=== PATIENT | female | born 1990 | race Caucasian/White ===

== ENCOUNTER 2021-11-06 17:30 | Emergency (ER) | payer OTHER, SELFPAY ==
--- NOTE | ~2021-11-06 | XR_ITS ---
EXAMINATION: XR abdomen/kub 1V INDICATION: Abdominal pain TECHNIQUE: Supine views of the abdomen were obtained on 2 radiographs. COMPARISON: None FINDINGS: The bowel gas pattern is normal. No free intraperitoneal gas is identified. There is a mode rate volume of colonic stool. The osseous structures are unremarkable. IMPRESSION: 1. Moderate volume of colonic stool. Reviewed, dictated and finalized at location F. L OPERATIONS MANAGER
[2021-11-06 17:37] VITALS: BP 133/82; PULSE 100; RESP 18; TEMP 36.9; O2SAT 100
--- NOTE | 2021-11-06 17:46 | ED.FEMALEGU ---
HPI - Female Genitourinary General Chief complaint: Urogenital-Female Stated complaint: uti complaint Time Seen by Provider: 11/06/21 17:46 Source: patient and family History of Present Illness HPI Narrative: PATIENT PRESENTS WITH URINARY SYMPTOMS. BURNING WITH URINATION. NO FLANK PAIN, NO ABDOMINAL PAIN, NO PELVIC PAIN AND NO GROSS HEMATURIA. NO CONCERN FOR STI. NO VAGINAL DISCHARGE. PATIENT DENIES URINATING OFTEN, BURNING WITH URINATION AND IS NOT VOIDS SMALL AMOUNTS. PATIENT STATES SHE HAS LOW BACK PAIN AND LEFT LOWER QUADRANT PAIN. PATIENT REPORTS A HISTORY OF CONSTIPATION AND REPORTS LAST BM 2 DAYS AGO OF HARD FORMED STOOL. PATIENT REPORTS HAS BEEN EVALUATED BY PCP FOR CONSTIPATION AND TAKES STOOL SOFTNERS ON A DAILY BASIS. NO NAUSEA NO CONCERN FOR JUST FINISHED NORMAL MENSES. MD elicited complaint: dysuria and UTI Related Data Home Medications Medication Instructions Recorded Confirmed bupropion HCl 300 mg PO DAILY 11/06/21 11/06/21 norethindrone-e.estradiol-iron 1.5 tablet PO DAILY 11/06/21 11/06/21 [ ()] venlafaxine 75 mg PO DAILY 11/06/21 11/06/21 Allergies Allergy/AdvReac Type Severity Reaction Status Date / Time sulfamethoxazole Allergy Severe Anaphylactic Verified 05/26/18 01:58 Shock trimethoprim Allergy Severe Anaphylactic Verified 05/26/18 01:58 Shock Sulfa (Sulfonamide Allergy Intermediate Confusion Verified 05/25/18 23:52 Antibiotics) prednisone Allergy Mild rash Verified 05/25/18 23:52 amoxicillin Allergy Unknown Rash Verified 11/06/21 17:48 cefprozil Allergy Unknown Rash Verified 11/06/21 17:48 levofloxacin Allergy Unknown Rash Verified 11/06/21 17:48 Review of Systems Review of Systems: CONSTITUTIONAL: Denies fever, chills, or sweats. EYES: Denies visual changes, redness, or discharge. ENT: Denies rhinorrhea, congestion, sore throat, or otalgia. CARDIOVASCULAR: Denies chest pain, palpitations, or edema. RESPIRATORY: Denies cough or dyspnea. GASTROINTESTINAL: Denies abdominal pain, nausea, vomiting, or diarrhea. GENITOURINARY: Denies dysuria or hematuria. SKIN: Denies rash or itching. MUSCULOSKELETAL: Denies back pain, joint pain, or myalgia. NEUROLOGIC: Denies headache, numbness, or weakness. PSYCHIATRIC: Denies anxiety or depression. Allergic/Immunologic: Comments: At time of signature, agree with nursing past medical, surgical, social and family history. There is no relevant family history pertinent to the presenting complaint PMFSH Family History Family History (Updated 05/02/11 @ 13:47 by DOCTOR UNKNOWN) Other Cerebrovascular accident Diabetes mellitus Family history of coronary artery disease Family history of malignant melanoma Hypertension Social History Social History Smoking status: Never smoker Alcohol intake: current Comments At time of signature, agree with nursing past medical, surgical, social and family history. There is no relevant family history pertinent to the presenting complaint Exam Narrative: GENERAL: Well-appearing, well-nourished, and in no acute distress. HEAD: Normocephalic, atraumatic. EYES: PERRLA and EOMI. ENT: Nares clear, no rhinorrhea or epistaxis. Mucous membranes moist. NECK: Supple. CHEST: Clear to auscultation. No respiratory distress. HEART: Regular rate and rhythm. No murmur heard. Normal peripheral pulses. ABDOMEN: Soft, nontender, nondistended, normal active bowel sounds. GENERALIZED TENDERNESS TO ABDOMINAL AREA EXTREMITIES: Normal range of motion. No edema. SKIN: Warm, dry, no rash. NEURO: No focal deficits. Alert and oriented x3. [place] Coma Scale Eye Opening: Spontaneous 4 [place] Coma Scale Motor: Obeys Commands 6 [place] Coma Scale Verbal: Oriented 5 [place] Coma Scale Total 15 Course Course Level of Care: Express Care Visit Vital Signs Vital signs: Vital Signs Temperature 36.9 C 11/06/21 17:37 Pulse Rate 100 11/06/21 17:37 Respiratory Rate 18 01
--- NOTE | 2021-11-06 18:06 | PC.NURSE ---
NO UC ORDERED PER PROVIDER
== END 2021-11-06 18:35 | disposition home or self-care (01) ==
PROVIDERS: Emergency Provider Nurse Practitioner Family; PCP Physician Assistant
DX: K59.00 Constipation, unspecified (principal); F41.9 Anxiety disorder, unspecified
CPT/HCPCS: 74018; 81003; 99213; G0463

== ENCOUNTER 2022-01-16 08:24 | Emergency (ER) | payer OTHER, SELFPAY ==
[2022-01-16 08:30] VITALS: BP 120/76; PULSE 109; RESP 18; TEMP 36.3; O2SAT 98
--- NOTE | 2022-01-16 08:39 | ED.URI ---
HPI - URI/Sore Throat General Chief Complaint: Upper Respiratory Infection Stated Complaint: Sore Throat/Congestion Time Seen by Provider: 01/16/22 08:41 Source: patient Mode of arrival: ambulatory Limitations: no limitations History of Present Illness HPI Narrative: 31 yo F presents with c/o runny nose, congestion, ears clogged, cough, sore throat, headache for 2 days. Took home covid test yesterday and was negative. Afebrile. Taking Nyquil to treat symptoms. No CP/SOB. Orginally thought symptoms were allergy related but now feels more sick . All systems reviewed and negative except as noted above. Related Data Home Medications Medication Instructions Recorded Confirmed bupropion HCl 300 mg PO DAILY 11/06/21 11/06/21 norethindrone-e.estradiol-iron 1.5 tablet PO DAILY 11/06/21 11/06/21 [ FE (28)] venlafaxine 75 mg PO DAILY 11/06/21 11/06/21 Allergies Allergy/AdvReac Type Severity Reaction Status Date / Time sulfamethoxazole Allergy Severe Anaphylactic Verified 01/16/22 08:42 Shock trimethoprim Allergy Severe Anaphylactic Verified 01/16/22 08:42 Shock Sulfa (Sulfonamide Allergy Intermediate Confusion Verified 01/16/22 08:42 Antibiotics) prednisone Allergy Mild rash Verified 01/16/22 08:42 amoxicillin Allergy Unknown Rash Verified 01/16/22 08:42 cefprozil Allergy Unknown Rash Verified 01/16/22 08:42 levofloxacin Allergy Unknown Rash Verified 01/16/22 08:42 Review of Systems Review of Systems: CONSTITUTIONAL: Denies fever, chills, or sweats. EYES: Denies visual changes, redness, or discharge. ENT: Reports rhinorrhea, congestion, sore throat, or otalgia. CARDIOVASCULAR: Denies chest pain, palpitations, or edema. RESPIRATORY: Reports cough. Denies dyspnea. GASTROINTESTINAL: Denies abdominal pain, nausea, vomiting, or diarrhea. GENITOURINARY: Denies dysuria or hematuria. SKIN: Denies rash or itching. MUSCULOSKELETAL: Denies back pain, joint pain, or myalgia. NEUROLOGIC: Denies headache, numbness, or weakness. PSYCHIATRIC: Denies anxiety or depression. All other systems reviewed are negative, except as documented in HPI. [facility] Family History Family History (Updated 05/02/11 @ 13:47 by DOCTOR UNKNOWN) Other Cerebrovascular accident Diabetes mellitus Family history of coronary artery disease Family history of malignant melanoma Hypertension Social History Social History Smoking status: Never smoker Alcohol intake: current Comments At time of signature, agree with nursing past medical, surgical, social and family history. There is no relevant family history pertinent to the presenting complaint. Exam Narrative: GENERAL: This is a well-nourished, well-developed patient, in no apparent distress. HEAD: normocephalic, atraumatic. EYES: PERRL. Sclera clear/white. Vision is grossly intact. EARS: External ears normal, auditory canals clear and without drainage, TMs normal without perforation. Hearing grossly intact. NOSE: External nose normal. Clear nasal drainage. THROAT: Mucous membranes moist, posterior pharynx clear. Clear postnasal drainage noted. NECK: Neck supple, non-tender without lymphadenopathy, masses or thyromegaly. CARDIOVASCULAR: Regular rate and rhythm without murmurs, gallops, or rubs. RESPIRATORY: Clear to auscultation. Breath sounds equal bilaterally. No wheezes, rales, or rhonchi. SKIN: warm, Dry, intact with no suspicious lesions or rash, good texture and turgor. NEURO: awake, alert, and oriented to person, place and time. There were no obvious focal neurologic abnormalities. EXTREMITIES: Normal range of motion Course Course Level of Care: Express Care Visit Vital Signs Vital signs: Vital Signs Temperature 36.3 C L 01/16/22 08:30 Pulse Rate 109 H 01/16/22 08:30 Respiratory Rate 18 01/16/22 08:30 Blood Pressure 120/76 01/16/22 08:30 Pulse Oximetry 98 01/16/22 08:30 Temperature 36.3 C L 01/16/22 08:30 Pulse Rate 109 H
== END 2022-01-16 08:55 | disposition home or self-care (01) ==
PROVIDERS: Emergency Provider Nurse Practitioner Family; PCP Physician Assistant
DX: J06.9 Acute upper respiratory infection, unspecified (principal); F41.9 Anxiety disorder, unspecified
CPT/HCPCS: 87081; 87804; 87880; 99213; G0463

== ENCOUNTER → 2022-05-28 13:50 | Outpatient (CLI) | payer OTHER, SELFPAY ==
--- NOTE | ~2022-05-28 | US_ITS ---
US axilla LT 05/28/2022 14:06 Indication: Localized swelling of the left axilla Procedure: High-resolution ultrasound of the left axilla Comparison: No prior studies for comparison. Findings: There is normal heterogeneous echotexture in the left axilla without discrete mass or fluid collection. Impression: 1: Normal left axillary ultrasound. No discrete mass. BI-RADS CATEGORY 1 - NEGATIVE Reviewed, dictated and finalized at location A. Impression: 1: Normal left axillary ultrasound. No discrete mass. BI-RADS CATEGORY 1 - NEGATIVE
== END ==
PROVIDERS: PCP Physician Assistant; Visit Provider Physician Assistant
DX: R22.2 Localized swelling, mass and lump, trunk (principal)
CPT/HCPCS: 76882

== ENCOUNTER 2025-01-04 13:31 | Outpatient (CLI) | payer OTHER, SELFPAY ==
--- NOTE | ~2025-01-04 | US_ITS ---
EXAM EXAMINATION: US OB follow up DATE: 01/04/2025 16:35 CDT INDICATION: Growth COMPARISON: 08/10/2024 TECHNIQUE: Real-time transabdominal obstetric ultrasound. FINDINGS: 1 para 0 There is a single intrauterine gestation in vertex presentation. The placenta is anterior The cervix measures 3.2 cm in length on the submitted images. cardiac activity and movement is noted with a heart rate of 128 beats per minute. The following biometric data were obtained: Biparietal diameter (BPD): 7.7 cm; head circumference (HC): 29.1 cm; abdominal circumference (AC): 28.4 cm; femur length (FL): 6.1 cm. These measurements are concordant. Estimated weight is 1884 g +/- 283 g, which correlates with the 63rd percentile when 03/03/2025 i s used as estimated date of delivery. As single measurements, these parameters are each equal to the following estimated gestational ages: BPD: 31 weeks 0 days. HC: 32 weeks 0 days. AC: 32 weeks 3 days. FL: 31 weeks 4 days. estimated gestational age based solely on measurements from this exam is 31 weeks 5 days +/- 2 weeks 2 days. IMPRESSION: Single intrauterine gestation in vertex presentation with cardiac activity identified. Estimated gestational age is 31 weeks and 5 days. Estimated date of delivery by ultrasound is 03/03/2025 Reviewed, dictated and finalized at location A. IMPRESSION: Single intrauterine gestation in vertex presentation with cardiac activit y identified. Estimated gestational age is 31 weeks and 5 days. Estimated date of delivery by ultrasound is 03/03/2025
== END 2025-01-04 13:32 | disposition home or self-care (01) ==
LOC: GOSHIMG 13:32
PROVIDERS: PCP Obstetrics & Gynecology; Visit Provider Obstetrics & Gynecology
DX: O09.511 Supervision of elderly primigravida, first trimester (principal); Z3A.00 Weeks of gestation of pregnancy not specified
CPT/HCPCS: 76816

== ENCOUNTER 2025-01-18 16:40 | Outpatient (CLI) | payer OTHER, SELFPAY ==
[2025-01-18 17:08] VITALS: BP 134/87; PULSE 100; PULSE 91; BMI 38.5
[2025-01-18 17:10] LABS: Basophils Absolute Auto 0.1 K/mm3 (0.0-0.1); Basophils Percent Auto 0.4 % (0.2-1.2); Eosinophils Absolute Auto 0.2 K/mm3 (0-0.3); Eosinophils Percent Auto 1.4 % (0-4.4); Hematocrit 30.4 % (37.0-47.0); Hemoglobin 10.4 g/dL (12.0-15.0); Immature Granulocyte Absolute 0.23 K/mm3 (0.00-0.031); Immature Granulocyte Percent A 1.4 % (0-0.5); Lymphocytes Absolute Auto 3.89 K/mm3 (0.9-3.2); Lymphocytes Percent Auto 23.5 % (18.3-44.2); Mean Corpuscular HGB Conc 34.2 g/dl (32-36); Mean Corpuscular Hemoglobin 29.7 pg (26-34); Mean Corpuscular Volume 86.9 fl (80-100); Mean Platelet Volume 10.2 fl (7.4-10.4); Monocytes Percent Auto 6.3 % (2.6-8.5); Neutrophils Absolute Auto 11.1 K/mm3 (1.3-6.7); Platelet Count Result 294 k/mm3 (150-375); Red Cell Distribution Width 13.2 % (11.5-14.5); White Blood Count 16.6 K/mm3 (4.5-10.0)
[2025-01-18 17:14] LABS: Add Urine Microscopic? YES; Appearance Urine Clear (Clear); Bacteria Urine Rare /hpf; Bilirubin Urine Negative (Negative); Blood Urine Negative (Negative); Color Urine Yellow (Yellow); Glucose Urine UA Trace mg/dL (Negative); Ketones Urine Negative (Negative); Leukocyte Esterase Ur Trace LEU/UL (Negative); Nitrate Urine Negative (Negative); Non Pathogenic Casts 0-2; Protein Urine Negative (Negative); RBC Urine 0-2 /hpf (0-2); Specific Grav Ur 1.004 (1.001-1.035); Squamous Epithelial Cell Urine Occasional /hpf (Few); Urobilinogen Urine 0.2 mg/dL (<2.0); WBC Urine 0-5 /hpf (0-3); pH Urine 6.5 (5.0-9.0)
[2025-01-18 17:15] VITALS: BP 129/82; PULSE 96
--- OUTSIDE RECORDS SUMMARY | 2025-01-18 17:17 | XMS_ITS | Clinical Summary ---
Author Organization [facility] Address [address] [place] [address] Care Team Providers Care Metabolic Specialist Name Role Phone Nelly Anedrson Primary Care Pr ovider Source Comments [facility],non-owned Affiliates and Associated Physician Practices is amultiple site organization consisting of ambulatory clinics and hospital sitesin [place], [place], [place] and [place]. This disclosure is being madepursuant to the Care Everywhere program and may not contain all information available regarding this patient. Last updated 18.[facility] [employer] Allergies Active Allergy Reactions Criticality Noted Date Comments Amoxicillin Rash Medium 05/20/2018 Cefprozil Urticaria Medium 05/20/2018 Ciprofloxacin Itching 05/20/2018 Levofloxacin Urticaria Medium 05/20/2018 Medications * Be aware that medications may not be up to date on this document. Alwaysverify current medications with the patient. Medication Sig Dispensed Refills Start Date End Date Status norethindone-ethiny l estradiol-FE (BLISOVI 24 FE) 1-20 MG-MCG(24) tablet Take 1 (one) tablet by mouth once daily Active venlafaxine (EFFEXOR) 37.5 MG tablet Take 1 (one) Half Tablet by mouth 3 times daily with meals Active BUPROPION HCL PO Active predniSONE (DELTASONE) 10 MG tablet 5 tabs po x2 days, 4 tabs po x2 days, 3 tabs po x2 days, 2 tabs po x2 days, 1 tab po x2 days 30 tablet 05/20/2018 Active Additional Information Patient not taking.Reason: Other, Informant: Patient, Reported on 09/07/2024 escitalopram (Lexapro) 5 MG tablet Take 1 (one) tablet by mouth once daily Active aspirin (Aspirin) 81 MG chew tablet Take 1 (one) tablet by mouth once daily Active Vit-Fe Fumarate-FA ( vitamin) 28-0.8 MG tablet Take 1 (one) tablet by mouth once daily Active docusate sodium (Colace) 50 MG capsule Take 1 (one) capsule by mouth once daily Active pyridoxine (Vitamin B-6) 25 MG tablet Take 2 (two) tablets by mouth once daily Active Doxylamine Succinate, Sleep, (UNISOM PO) Take 1 tablet by mouth at bedtime Active calcium carbonate (Tums) 500 MG chew tablet Take 1 (one) tablet by mouth daily with food Active levothyroxine (Synthroid) 25 MCG tabletIndications:H ypothyroidism Take 1 (one) tablet by mouth daily before breakfast Patient is unsure of dose she takes Reasons: Underactive Thyroid Active Active Problems Problem Noted Date Diagnosed Date Multigravida of advanced maternal age in third t rimester 09/07/2024 Anxiety 09/07/2024 Hypothyroid in , antepartum 09/07/2024 NEGATIVE PAST MEDICAL HISTORY - SEE PROBLEM LIST Estimated Date of Delivery Comme nts Yes 03/06/2025 Based on last me nstrual period of 05/30/2024 Encounters Date Type Department Care Team Description 11/14/2024 12:43 PM SOCIAL MEDIA PROJECT MANAGER - 11/14/2024 11:59 PM SOCIAL MEDIA PROJECT MANAGER Hospital Encounter [facility] [address] [place], [place] [id number] Head, Katiuska Ventura MD Discharge Disposition: Home or Self Care from Last 3 Months Family History Medical History Relation Name Comments Hyperlipidemia Father Hypertension Father Relation Name Status Comments Father Social History Tobacco Use Types Packs/Day Years Used Date Smoking Tobacco: Never Smokeless Tobacco: Never Alcohol Use Standard Drinks/Week Comments Not Currently 0 (1 standard drink = 0.6 oz pur e alcohol) Estimated Date of Delivery Comme nts Yes 03/06/2025 Based on last me nstrual period of 05/30/2024 Sex and Gender Information Value Date Recorded Sex Assigned at Not on file Gender Identity Not on file Sexual Orientation Not on file Last Filed Vital Signs Vital Sign Reading Time Taken Comments Blood Pressure 122/60 09/07/2024 10:57 AM SOCIAL MEDIA PROJECT MANAGER Pulse 68 09/07/2024 10:57 AM SOCIAL MEDIA PROJECT MANAGER Temperature 37.2 C (99 F) 07/16/2020 5:05 PM CDT Respiratory Rate 20 07/16/2020 5:05 PM CDT Oxygen Saturation 96% 07/16/2020 5:05 PM CDT Inhaled Oxygen Concentration - - Weight 82.2 kg (181 lb 3.2 oz) 09/07/2024 10:57 AM SOCIAL MEDIA PROJECT MANAGER Height 160 cm (5' 3 ) 05/20/2018 3:00 PM CDT Body Mass Index 32.1 05/20/2018 3:00 PM CDT Plan of Treatment Health Maintenance Due Date Last Done Comments PAP SMEAR 1988 HIV SCREENING 2003 HEPATITIS C SCREENING 12/13/2006 DTAP/TDAP/TD VACCINES (1 - Tdap) 2007 HEPATITIS B VACCINE (1 of 3 - 19+ 3-dose series) 2007 COVID-19 VACCINE (3 - 2023-2 5 season) 2024 12/28/2020, 11/29/2020 INFLUENZA VACCINE (#1) 2024 09/02/2021 DEPRESSION SCREENING 10/26/2024 OB-ONE HOUR GLUCOSE 11/28/2024 OB-TDAP CURRENT 12/05/2024 OB-RHOGAM INJECTION 12/12/2024 OB-GROUP B STREP SCREEN 01/30/2025 ZOSTER VACCINE (1 of 2) 2038 HIB VACCINE Aged Out No longer eligi ble based on patient's age to complete this topic HPV VACCINE Aged Out No longer eligi ble based on patient's age to complete this topic MENINGOCOCCAL (Group B) VACCINE SHARED DECISION-MAKING Aged Out No longer eligible based on patient's age to complete this topic MENINGOCOCCAL GROUPS A/C/Y/W VACCINE Aged Out No longer eligible b ased on patient's age to complete this topic PNEUMOCOCCAL VACCINE Aged Out No long er eligible based on patient's age to complete this topic Respiratory Syncytial Virus (RSV) Vaccine Pt: or over 60 yrs (No Doses Required) Completed Procedures Procedure Name Priority Date/Time Associated Diagnosis Comments SONOGRAM - COMPLETE Routine 11/14/2024 1 2:52 PM SOCIAL MEDIA PROJECT MANAGER Multigravida of advanced maternal age in third trimester Obesity affecting in second trimester, unspecified obesity type Hypothyroid in , antepartum 24 weeks gestation of Encounter for ultrasound to assess growth Encounter for follow-up ultrasound of anatomy from Last 3 Months Results * SONOGRAM - COMPLETE (11/14/2024 12:52 PM SOCIAL MEDIA PROJECT MANAGER) Linked Results Indication ======== Incomplete anatomy Advanced Maternal Age Obesity, Class I Anxiety/Depressio n History ====== OB History 1 Lab Tests Test Date Result NIPT Low risk, Male (per patient) Maternal Assessment Physical Exam Height 157 cm, 5 ft 2 in. Weight 90 kg, 199 lb. Initial weight 80 kg, 177 lb. BMI 36.40 kg/m . Initial BMI 32.37 kg/m . Weight gain 10 kg, 22 lb Method ====== Transabdominal ultrasound. View: Sufficient ========= Goldstein . Number of fetuses: 1 Dating ====== Date Details Gest. age BETHANY LMP 05/30/2024 24 w + 0 d 03/06/2025 Stated BETHANY 24 w + 0 d 03/06/2025 U/S 11/14/2024 based upon AC, BPD, Femur, HC 24 w + 3 d 03/03/2025 Assigned dating based on the LMP, selected on 09/07/2024 24 w + 0 d 03/06/2025 General Evaluation Cardiac activity present. FHR 152 bpm. Presentation: cephalic Placenta: Placental site: anterior Umbilical cord: Cord vessels: 3 vessel cord. Insertion site: normal insertion Amniotic fluid: Amount of AF: normal, normal. MVP 5.0 cm Biometry BPD 58.7 mm 24w 0d 44% Hadlock HC 227.7 mm 24w 6d 63% Hadlock AC 205.1 mm 25w 1d 75% Hadlock Femur 41.8 mm 23w 4d 25% Hadlock Humerus 41.6 mm 25w 1d 74% Alexandra HC / AC 1.11 Weight Calculation: EFW 699 g 63% Hadlock EFW (lb,oz) 1 lb 9 oz EFW by Hadlock ([id number]) appropriate Growth Overview Exam date GA BPD (mm) HC (mm) AC (mm) FL (mm) HL (mm) EFW (g) 09/07/2024 14w 2d 27.8 73% 103.5 61% 82.8 68% 12.7 23% 94 33% 10/17/2024 20w 0d 46.7 55% 174.8 42% 159.4 78% 32 41% 32 79% 357 72% 11/14/2024 24w 0d 58.7 44% 227.7 63% 205.1 75% 41.8 25% 41.6 74% 699 63% Anatomy The following structures appear normal: Heart / Thorax 4-chamber view. [id number] view. Aortic arch view. Bicaval view. Ductal arch view. Great vessels. Spine Cervical spine. Thoracic spine. Lumbar spine. Sacral spine. Extremities / Skeleton Left foot. The following structures were documented previously: Head / Neck Cranium. Lateral ventricles. Choroid plexus. Midline falx. Cavum septi pellucidi. Cerebellum. Cisterna magna. Thalami. Nuchal fold. Face Lips. Profile. Nose. Nasal bone. Orbits. Heart / Thorax RVOT view. LVOT view. 3-vessel view. Situs. Right lung. Left lung. Diaphragm. Abdomen Cord insertion. Stomach. Kidneys. Bladder. Bowel. Genitals. Extremities / Skeleton Arms. Hands. Legs. Right foot. sex: male. Impression ========= Single, live, intrauterine at 24w 0d size appears appropriate Amniotic fluid volume: normal No major malformations were seen within the limitations of ultrasound Follow-up ======== Follow up ultrasound in 4-6 weeks for growth assessment is recommended Coding ====== Procedures [id number]: US Preg Uterus Follow Up [facility] PACS Anatomical Region Laterality Modality Other 11/14/2024 12:5 2 PM SOCIAL MEDIA PROJECT MANAGER Jacquelin Juárez MD [facility] ORDERABLES from Last 3 Months Care Teams Metabolic Specialist Relationship Specialty Start Date End Date Nelly Anderson PA [address] [place] [id number] PCP - General Physician Wheel Installer 05/20/18
--- OUTSIDE RECORDS SUMMARY | 2025-01-18 17:17 | XMS_ITS | Continuity of Care Document ---
Author Organization [facility] Address [address] [place] [address] Phone Care Team Providers Care Library Technical Assistant Name Role Phone Ayesha Fields DO Unavailable Unavailable Allergies, Adverse Reactions, Alerts Substance Reaction Status Criticality cefprozil Active No Information CIPROFLOXACIN HCL Active No Informa tion ciprofloxacin Active No Information levofloxacin Active No Information amoxicillin Active No Information Medications Medication Instructions Dosage Effective Dates (start - stop) Status Comments bupropion HCl XL 150 mg 24 hr tablet, extended release TAKE ONE TABLET BY MOUTH ONCE DAILY - Active venlafaxine ER 37.5 mg capsule,extended release 24 hr take 1 capsule by oral route every day with food 37.5 MG - Active omeprazole 40 mg capsule,delayed release take 1 capsule by oral route every day before a meal 40 MG - Active Xanax 0.25 mg tablet take 1 tablet by oral route every day as need for anxiety - Active Blisovi Fe 1.5/30 (28) 1.5 mg-30 mcg (21)/75 mg (7) tablet take 1 tablet by oral route every day for control 1.00 tablet - Active multivitamin tablet take 1 by Oral route once 1 - Active Advance Directives Directive Yes / No Effective Date File Name No Information Encounters Encounter Description Practice Location Reason(s) For Visit Diagnoses Date Provider Providers Copied on Encounter [facility], [address], [place], [place], [id number], tel:[phone] [facility] No Information Diamond Hodge. [address] [place] [address], [address], [place], [place], [facility], . tel:[phone] [email or web address], [address], [place], [place], [address], tel:[phone] [facility] Internal Medicine No Information Diamond Hodge. [address] [facility] [address] [facility], [address] [facility], [place], [place], [facility], . tel:[phone] [facility] [email or web address], [address], [place], [place], [address], tel:[phone] [facility] Internal Medicine No Information Yokasta Lama. [address] [place] [address], [facility], . tel:[phone] [facility], [address], [place], [place], [address], tel:[phone] [facility] Internal Medicine No Information Diamond Hodge. [address] [facility], [place] [address], [place], [place], [facility], . tel:[phone] [facility] [email or web address], [address], [place], [place], [address], [place] tel:[phone] [facility] Internal Medicine Anxiety Diamond Hodge. [address] [facility], [address], [facility], . tel:[phone] Referring Provider: Ayesha Alicia, [address] [facility] [address] [facility], [place], [place], [facility]. tel:[phone] [facility] [email or web address], [address], [place], [place], [address], [place] tel:[phone] [facility] Internal Medicine No Information Diamond Hodge. [address] [facility], [address], [facility], . tel:[phone] [facility], [address], [place], [place], [address], tel:[phone] [facility] Internal Medicine No Information Yokasta Lama. [address] [place], [address], [place]. tel:[phone] [facility], [address], [place], [place], [address], [place] tel:[phone] [facility] Internal Medicine Body mass index (BMI) 29.0-29.9, adultPE (physical exam), annual Diamond Hodge. [address] [facility], [address], [place], [address], [place]. tel:[phone] Referring Provider: Ayesha Alicia, [address], [place], [address]. tel:[phone] Family History Family Member Type Diagnosis Age At Onset Father Problem (finding) stroke Mother Problem (finding) Family history unknown Payers Payer name Insurance type Covered constitution party ID Authorstephanie haile(s) [facility] [id number] Social History Type Description Quantity Date Captured Comments Alcohol Use Details Unknown Caffeine Use Details Unknown Tobacco Use Status No Information Smoking Status No Information Sex Female Chief Complaint And Reason For Visit No Information Reason For Referral Reason For Referral No Information History Of Present Illness Encounter Date Complaint History Of Prese nt Illness No Information Functional Status Date Functional Assessmen t No Information Instructions Date Instruction Additional Infor mation No Information Assessments Type Assessment Date No Information Patient Care Teams Name Effective Dates (start - stop) Status Members No Information
[2025-01-18 17:19] LABS: Creatinine Urine 16.9 mg/dL; Total Protein Urine Random 20 mg/dL; Ur Ttl Prot Creatinine Ratio 1.18 mg/mg (0-0.20)
[2025-01-18 17:20] VITALS: BP 129/82; PULSE 96
[2025-01-18 17:22] LABS: Alanine Aminotransferase 19 U/L (6-35); Albumin Level 3.8 g/dL (3.5-5.1); Alkaline Phosphatase 153 U/L (38-126); Anion Gap 8 mmol/L (4-12); Aspartate Amino Transferase 26 U/L (14-36); Bilirubin,Total 0.2 mg/dL (0.2-1.3); Blood Urea Nitrogen 4 mg/dL (7-17); Carbon Dioxide 24 mmol/L (22-30); Chloride 102 mmol/L (98-107); Estimated CRCL calculation 104 ml/min; Estimated Glomerular Filt Rate > 60; Glucose 118 mg/dL (65-110); Potassium 3.5 mmol/L (3.4-5.0); Sodium 134 mmol/L (137-145); Uric Acid 3.2 mg/dL (2.5-7.5)
[2025-01-18 17:30] VITALS: BP 127/87; PULSE 90
[2025-01-18 17:45] VITALS: BP 128/82; PULSE 91
--- NOTE | 2025-01-18 17:54 | PC.NURSE ---
Dr. Juárez returned call and informed of reactive NST, BP's, and lab results. Pt to complete a 24 hr urine at home and when she returns it on either Thursday or Thursday, to have a NST with BP checks.
[2025-01-18 18:00] VITALS: BP 118/83; PULSE 90
--- NOTE | 2025-01-18 18:12 | PC.NURSE ---
Pt plans to start 24 hr urine on after work, complete on Thursday evening, and return specimen to OB unit Thursday morning and have NST and BP check.
== END 2025-01-18 18:12 | disposition home or self-care (01) ==
LOC: ANHOBOP 16:42 → ANHOBPP 16:43
PROVIDERS: PCP Physician Assistant; Visit Provider Obstetrics & Gynecology
DX: O13.9 Gestational [pregnancy-induced] hypertension without significant proteinuria, unspecified trimester (principal); Z3A.00 Weeks of gestation of pregnancy not specified
CPT/HCPCS: 36415; 59025; 80053; 81001; 82570; 84156; 84550; 85025; 99199

== ENCOUNTER 2025-02-11 08:33 | Outpatient (RCR) | payer OTHER, SELFPAY ==
[2025-01-21 10:55] VITALS: BMI 38.5
[2025-01-21 11:18] LABS: Collection Time Urine 24 HOURS
[2025-01-21 11:30] LABS: Total Protein Urine Random 24 mg/dL
[2025-01-21 11:31] LABS: Creatinine Urine 38.1 mg/dL; Patient Weight 210 Lbs; Serum Creat 0.69
[2025-01-21 11:32] LABS: Total Protein Urine 24 Hr 888 mg/24hr (28-141); Total Volume 24 Hour Urine 3700 ml
[2025-01-21 11:33] LABS: Creatinine Clearance Urine 126.2 ml/min (75-125); Total Volume 24 Hour Urine 3700 ml
[2025-01-21 11:40] VITALS: BP 134/79; PULSE 95
[2025-01-26 08:50] VITALS: BP 125/72; PULSE 105
[2025-01-28 08:54] LABS: Basophils Absolute Auto 0.1 K/mm3 (0.0-0.1); Basophils Percent Auto 0.5 % (0.2-1.2); Eosinophils Absolute Auto 0.2 K/mm3 (0-0.3); Eosinophils Percent Auto 1.5 % (0-4.4); Hematocrit 32.1 % (37.0-47.0); Hemoglobin 10.4 g/dL (12.0-15.0); Immature Granulocyte Absolute 0.46 K/mm3 (0.00-0.031); Immature Granulocyte Percent A 3.1 % (0-0.5); Lymphocytes Absolute Auto 2.81 K/mm3 (0.9-3.2); Lymphocytes Percent Auto 18.9 % (18.3-44.2); Mean Corpuscular HGB Conc 32.4 g/dl (32-36); Mean Corpuscular Volume 89.4 fl (80-100); Mean Platelet Volume 10.6 fl (7.4-10.4); Monocytes Absolute Auto 0.8 K/mm3 (0.1-0.6); Monocytes Percent Auto 5.3 % (2.6-8.5); Neutrophils Absolute Auto 10.5 K/mm3 (1.3-6.7); Neutrophils Percent Auto 70.7 % (45.5-73.1); Platelet Count Result 256 k/mm3 (150-375); Red Blood Count 3.59 M/mm3 (4.2-5.4); Red Cell Distribution Width 13.7 % (11.5-14.5); White Blood Count 14.9 K/mm3 (4.5-10.0)
[2025-01-28 08:56] LABS: Alanine Aminotransferase 19 U/L (6-35); Albumin Level 3.4 g/dL (3.5-5.1); Alkaline Phosphatase 157 U/L (38-126); Anion Gap 9 mmol/L (4-12); Aspartate Amino Transferase 28 U/L (14-36); Bilirubin,Total 0.2 mg/dL (0.2-1.3); Blood Urea Nitrogen 5 mg/dL (7-17); Calcium 8.9 mg/dL (8.4-10.2); Carbon Dioxide 23 mmol/L (22-30); Chloride 104 mmol/L (98-107); Estimated CRCL calculation 106 ml/min; Estimated Glomerular Filt Rate > 60; Glucose 119 mg/dL (65-110); Potassium 3.5 mmol/L (3.4-5.0); Sodium 136 mmol/L (137-145); Uric Acid 3.9 mg/dL (2.5-7.5)
[2025-01-28 09:33] VITALS: BP 119/73; PULSE 89
[2025-01-30 15:48] VITALS: BP 129/86; PULSE 90
[2025-02-04 08:55] LABS: Basophils Absolute Auto 0.1 K/mm3 (0.0-0.1); Basophils Percent Auto 0.4 % (0.2-1.2); Eosinophils Absolute Auto 0.2 K/mm3 (0-0.3); Eosinophils Percent Auto 1.3 % (0-4.4); Hematocrit 32.2 % (37.0-47.0); Hemoglobin 10.8 g/dL (12.0-15.0); Immature Granulocyte Absolute 0.14 K/mm3 (0.00-0.031); Immature Granulocyte Percent A 0.9 % (0-0.5); Lymphocytes Absolute Auto 3.34 K/mm3 (0.9-3.2); Lymphocytes Percent Auto 22.1 % (18.3-44.2); Mean Corpuscular HGB Conc 33.5 g/dl (32-36); Mean Corpuscular Hemoglobin 29.3 pg (26-34); Mean Corpuscular Volume 87.3 fl (80-100); Mean Platelet Volume 10.8 fl (7.4-10.4); Monocytes Absolute Auto 0.7 K/mm3 (0.1-0.6); Monocytes Percent Auto 4.8 % (2.6-8.5); Neutrophils Absolute Auto 10.6 K/mm3 (1.3-6.7); Neutrophils Percent Auto 70.5 % (45.5-73.1); Platelet Count Result 273 k/mm3 (150-375); Red Blood Count 3.69 M/mm3 (4.2-5.4); Red Cell Distribution Width 13.8 % (11.5-14.5); White Blood Count 15.1 K/mm3 (4.5-10.0)
[2025-02-04 09:04] VITALS: BP 123/76; PULSE 95
[2025-02-04 09:08] LABS: Alanine Aminotransferase 20 U/L (6-35); Albumin Level 3.5 g/dL (3.5-5.1); Alkaline Phosphatase 174 U/L (38-126); Anion Gap 7 mmol/L (4-12); Aspartate Amino Transferase 26 U/L (14-36); Bilirubin,Total 0.3 mg/dL (0.2-1.3); Blood Urea Nitrogen 3 mg/dL (7-17); Calcium 9.4 mg/dL (8.4-10.2); Carbon Dioxide 24 mmol/L (22-30); Chloride 103 mmol/L (98-107); Estimated CRCL calculation 97 ml/min; Estimated Glomerular Filt Rate > 60; Glucose 148 mg/dL (65-110); Potassium 3.3 mmol/L (3.4-5.0); Sodium 134 mmol/L (137-145); Uric Acid 3.9 mg/dL (2.5-7.5)
[2025-02-09 09:11] VITALS: BP 126/83; PULSE 93
--- NOTE | ~2025-02-11 | US_ITS ---
EXAMINATION: US OB BPP wo non-stress DATE: 01/26/2025 9:17 CDT INDICATION: Preeclampsia TECHNIQUE: Real-time transabdominal obstetric ultrasound. FINDINGS: Comparison to 01/26/2025 There is a single living fetus in vertex presentation. The placenta is anterior without placenta pre via. cardiac activity and movement is noted with a heart rate of 144 beats per minute. Biophysical profile: breathin of 2 movement: 2 of 2 tone: 2 of 2 Amniotic flud pocket: 2 of 2 Total score: 8 of 8 IMPRESSION: 1. Single living intrauterine in vertex presentation. 2: Total biophysical profile score of 8/8. Reviewed, dictated and finalized at location A.
--- NOTE | ~2025-02-11 | US_ITS ---
EXAMINATION: US OB BPP wo non-stress DATE: 01/30/2025 16:23 CDT INDICATION: Preeclampsia. Evaluate amniotic fluid index TECHNIQUE: Real-time transabdominal obstetric ultrasound. FINDINGS: There is a single intrauterine gestation visualized in vertex presentation. The placenta is anterior. cardiac activity and movement is noted with a heart rate of 134 beats per minute. Biophysical profile: breathin of 2 movement: 2 of 2 tone: 2 of 2 Amniotic fluid pocket: 2 of 2 Total score: 8 of 8 Femur length is 7.3 cm corresponding to an approximate gestational age of 37 weeks and 3 days. IMPRESSION: 1. Single intrauterine gestation in vertex presentation. 2: Total biophysical profile score of 8/8. Reviewed, dictated and finalized at location A.
--- NOTE | ~2025-02-11 | US_ITS ---
EXAMINATION: US OB BPP wo non-stress DATE: 02/09/2025 09:55 INDICATION: Assess biophysical profile and amniotic fluid index during third trimester . TECHNIQUE: Real-time pelvic ultrasound was performed. The interpreting radiologist was not present fo r the study. COMPARISON: None. FINDINGS: There is a single living fetus in vertex presentation. The placenta is anterior. heart rate is 136 beats per minute (bpm). Normal amniotic fluid index of 14.5 cm (5th%-95%: 7.7-24.9 cm at 36 week s estimated gestational age) Biophysical profile performed by the technologist: breathing (30 sec sustained breathing in 30 minutes): 2 out of 2 movement (3 gross body movements in 30 minutes): 2 out of 2 tone (one episode of odqxljy-qfxcokfeq-urcmtjw limb movement): 2 out of 2 Amniotic fluid pocket (2 cm): 2 out of 2 Total score: 8 out of 8 IMPRESSION: 1. Single living fetus in vertex presentation with heart rate of 136 bpm. 2. Biophysical profile 8 out of 8. 3. Normal amniotic fluid index of 14.5 cm Reviewed, dictated and finalized at location A.
--- NOTE | ~2025-02-11 | US_ITS ---
US OB limited 01/26/2025 08:32 Indication: Amniotic fluid index. Preeclampsia. Procedure: High-resolution Limited obstetrical ultrasound Comparison: Ultrasound dated 01/05/2020 Findings: There is a single living intrauterine in vertex presentation. heart rate 13 7 BPM. Placenta is anterior without previa. Amniotic fluid index is normal measuring 11.6 cm. Impression: 1: Normal CADEN measures 11.6 cm. Reviewed, dictated and finalized at location A. Impression: 1: Normal CADEN measures 11.6 cm.
[2025-02-11 09:01] LABS: Basophils Absolute Auto 0.1 K/mm3 (0.0-0.1); Basophils Percent Auto 0.6 % (0.2-1.2); Eosinophils Absolute Auto 0.2 K/mm3 (0-0.3); Eosinophils Percent Auto 1.3 % (0-4.4); Hematocrit 32.3 % (37.0-47.0); Hemoglobin 10.8 g/dL (12.0-15.0); Immature Granulocyte Absolute 0.15 K/mm3 (0.00-0.031); Lymphocytes Absolute Auto 3.16 K/mm3 (0.9-3.2); Mean Corpuscular HGB Conc 33.4 g/dl (32-36); Mean Corpuscular Hemoglobin 29.3 pg (26-34); Mean Corpuscular Volume 87.8 fl (80-100); Mean Platelet Volume 10.8 fl (7.4-10.4); Monocytes Absolute Auto 0.8 K/mm3 (0.1-0.6); Monocytes Percent Auto 5.4 % (2.6-8.5); Neutrophils Percent Auto 69.7 % (45.5-73.1); Platelet Count Result 249 k/mm3 (150-375); Red Blood Count 3.68 M/mm3 (4.2-5.4); Red Cell Distribution Width 13.8 % (11.5-14.5); White Blood Count 14.3 K/mm3 (4.5-10.0)
[2025-02-11 09:11] LABS: Alanine Aminotransferase 16 U/L (6-35); Albumin Level 3.5 g/dL (3.5-5.1); Alkaline Phosphatase 181 U/L (38-126); Anion Gap 10 mmol/L (4-12); Aspartate Amino Transferase 24 U/L (14-36); Bilirubin,Total 0.3 mg/dL (0.2-1.3); Blood Urea Nitrogen 4 mg/dL (7-17); Calcium 8.7 mg/dL (8.4-10.2); Carbon Dioxide 19 mmol/L (22-30); Chloride 106 mmol/L (98-107); Estimated CRCL calculation 99 ml/min; Estimated Glomerular Filt Rate > 60; Glucose 117 mg/dL (65-110); Potassium 3.4 mmol/L (3.4-5.0); Sodium 135 mmol/L (137-145); Uric Acid 3.9 mg/dL (2.5-7.5)
[2025-02-11 09:12] VITALS: BP 127/86; PULSE 88
== END 2025-02-15 17:23 | disposition home or self-care (01) ==
LOC: ANHOBOP 08:33
PROVIDERS: PCP Physician Assistant; Visit Provider Obstetrics & Gynecology
DX: O13.9 Gestational [pregnancy-induced] hypertension without significant proteinuria, unspecified trimester (principal)
CPT/HCPCS: 36415; 59025; 76815; 76819; 80053; 81050; 82575; 84156; 84550; 85025

== ENCOUNTER 2025-02-13 15:55 | Inpatient (IN) | payer OTHER, SELFPAY ==
[2025-02-13] VITALS (16 sets, daily range): BP systolic 131–142; BP diastolic 82–93; PULSE 74–87; TEMP 36.2–36.6; BMI 36.7
--- NOTE | 2025-02-13 17:23 | LDADM ---
This patient, Argelia Keys, was admitted to Labor/Delivery/Recovery 103 on 02/13/25 at 15:55. Plans for labor, pain management and were discussed with patient. Patient/family oriented to hospital policies and general routines including ID bracelet, bed and alarms, visiting hours, pain management, procedures, bathroom and other care routines, personal items, smoking policy, room service/diet and guest tray routines, security routines, and visiting hours. Patient/Family are encouraged to report perceived risks to care and to ask questions if they do not understand what they are told or what they should do. See OBIX for further documentation.
--- OUTSIDE RECORDS SUMMARY | 2025-02-13 17:44 | XMS_ITS | Clinical Summary ---
Author Organization [facility] Address [address] [place] [address] Care Team Providers Care Pearl Restorer Name Role Phone Nelly Anderson Primary Care Pr ovider Source Comments [facility],non-owned Affiliates and Associated Physician Practices is amultiple site organization consisting of ambulatory clinics and hospital sitesin [place], [place] and [place]. This disclosure is being madepursuant to the Care Everywhere program and may not contain all information available regarding this patient. Last updated 18.[facility] Allergies Active Allergy Reactions Criticality Noted Date Comments Amoxicillin Rash Medium 05/20/2018 Cefprozil Urticaria Medium 05/20/2018 Ciprofloxacin Itching 05/20/2018 Levofloxacin Urticaria Medium 05/20/2018 Medications * Be aware that medications may not be up to date on this document. Alwaysverify current medications with the patient. norethindone-et hinyl estradiol-FE (BLISOVI 24 FE) 1-20 MG-MCG(24) tablet [...] 1 tab po x2 days 30 tablet 8 Active Additional Information Patient not taking.Reason: Other, [...] with food Active levothyroxine (Synthroid) 25 MCG tabletIndicatio ns:Hypothyroidi sm Take 1 (one) tablet by mouth daily [...] on last me nstrual period of 05/30/2024 Family History Medical History Relation Name Comments [...] Recorded Sex Assigned at Not on file Legal Sex Female 10:52 AM CDT Gender Identity Not on file Sexual Orientation Not on file Last Filed Vital Signs Vital Sign Reading Time Taken Comments Blood Pressure 122/60 09/07/2024 10:57 AM SENIOR IT ENGINEER Pulse 68 09/07/2024 10:57 AM SENIOR IT ENGINEER Temperature 37.2 C (99 F) 07/16/2020 5:05 PM CDT Respiratory Rate 20 07/16/2020 5:05 PM CDT Oxygen Saturation 96% 07/16/2020 5:05 PM CDT Inhaled Oxygen Concentration - - Weight 82.2 kg (181 lb 3.2 oz) 09/07/2024 10:57 AM SENIOR IT ENGINEER Height 160 cm (5' 3 ) 05/20/2018 3:00 PM CDT Body Mass Index 32.1 05/20/2018 3:00 PM CDT Plan of Treatment Health Maintenance Due Date Last Done Comments PAP SMEAR 1988 HIV SCREENING 2003 HEPATITIS C SCREENING 12/13/2006 DTAP/TDAP/TD VACCINES (1 - Tdap) 2007 HEPATITIS B VACCINE (1 of 3 - 19+ 3-dose series) 2007 COVID-19 VACCINE ( - 2023-2 5 season) 2024 12/28/2020, 11/29/2020 DEPRESSION SCREENING 10/26/2024 OB-ONE HOUR GLUCOSE 11/28/2024 OB-TDAP CURRENT 12/05/2024 OB-RHOGAM INJECTION 12/12/2024 OB-GROUP B STREP SCREEN 01/30/2025 INFLUENZA VACCINE (Season Ended) 2025 09/02/2021 ZOSTER VACCINE (1 of 2) 2038 HIB [...] over 60 yrs (No Doses Required) Completed [place] [address] [place] [address] Care Teams Pearl Restorer Relationship Specialty Start Date End Date Nelly Anderson PA [address] [place] [address] PCP - General Physician Galley Hand 05/20/18
--- OUTSIDE RECORDS SUMMARY | 2025-02-13 17:44 | XMS_ITS ---
Author Organization [facility] [facility] ([address]) Address [address] [place] [address] Care Team Providers Care Tube Splicer Name Role Phone Nelly Ferguson Primary Care Provider Unavailab le Jackeline Disla Unavailable [phone] [employer], Provider Unavailable Unavailab le Allergies Allergen (clinical drug ingredient) Drug/Non Drug Allergy documented on EMR Reaction Allergy Type Onset Date Status CEFZIL (uncoded) rash Allergy Act parminder sulfamethoxazole / trimethoprim Bactrim DS wheezing Drug Allergy Active Ciprofloxacin rash Drug Allergy Act parminder Levaquin rash Drug Allergy Active methylprednisolone methylPREDNISolone rash Drug Allergy Active Penicillin hives Drug Allergy Active [facility] Conversion Encounter Medications Medication SIG (Take, Route, Frequency, Duration) Notes Start Date End Date Status Xyzal Allergy 24HR 5 MG 1 tablet PO daily for 30 Active Azelastine HCl 137 MCG/SPRAY 2 spray(s) intranasally 2 times a day for 30 day(s) Active buPROPion HCl ER (XL) 300 MG 1 tab(s) orally every 24 hours Active EPINEPHrine 0.3 MG INTRAMUSCULARLY ONCE *Please review and pick correct strength-formulati on from [facility] options. If intended option is not shown, discontinue and re-order from Quick Search* Active NASAL WASHES N/A DIRECTED INTRANASALLY NEEDED for 30 *Please review for potential replacement for e-prescription and drug interaction check* Active Effexor XR 37.5 MG 1 cap(s) orally once a day Active ZyrTEC Allergy 10 MG 1 tab(s) orally once a day Active Encounters Encounter Location Date Provider Diagnosis [facility] - [place] [address] 04/09/2024 Provider Ileana Other allergic rhinitis J30.89 Assessments Encounter Date Diagnosis (ICD Code) Assessment Notes Treatment Notes Treatment Clinical Notes Section Notes 04/09/2024 Other allergic rhinitis (ICD-10 - J30.89) Plan Of Treatment Medication Medication Name Sig Start Date Stop Date Notes Xyzal Allergy 24HR 5 MG 1 tablet PO daily for 30 Azelastine HCl 137 MCG/SPRAY 2 spray(s) intranasally 2 times a day for 30 day(s) NASAL WASHES N/A DIRECTED INTRANASALLY NEEDED for 30 *Please review for potential replacement for e-prescription and drug interaction check* Progress Notes * Kaci THACKEROB:1990 (34 yo F)Acc No.[id number]:04/09/2024 Patient: Brandi FOWLERgail Provider: Johny Pederson :1990 A ge:33 Y S ex:Female Date:04/09/2024 Address:[address] [place], [place] [id number] Pcp:Nelly Ferguson Subjective: * Chief Complaints: * 1 . Multum To Medispan Conversion Encounter. * Medical History: * Medications: T aking EPINEPHrine 0.3 MG KIT INTRAMUSCULARLY ONCE , Notes to Pharmacist: *Please review and pick correct strength-formulation from [employer] options. If intended option is not shown, discontinue and re-order from Quick Search*, Taking ZyrTEC Allergy 10 MG Tablet 1 tab(s) orally once a day , Taking Effexor XR 37.5 MG Capsule Extended Release 24 Hour 1 cap(s) orally once a day , Taking buPROPion HCl ER (XL) 300 MG Tablet Extended Release 24 Hour 1 tab(s) orally every 24 hours * Allergies: C EFZIL: rash - Allergy, Levaquin: rash - Allergy, Penicillin: hives, methylPREDNISolone: rash - Allergy, Bactrim DS: wheezing - Allergy, Ciprofloxacin: rash - Allergy. Objective: * Vitals: Assessment: * Assessment: 1. O ther allergic rhinitis - J30.89 (Primary) Plan: * Treatment: * Billing Information: * Visit Code: * Procedure Codes: * Electronic signature of Moncho BUNDY-Migration on 02/13/2025 at 05:44 PM CDT Sign off status: Pending * Provider: Johny parr Migration Date: 0 04/09/2024 Generated for Libra molina/Tamar/Eduardo on: 0 02/13/2025 05:44 PM CDT
--- OUTSIDE RECORDS SUMMARY | 2025-02-13 17:45 | XMS_ITS | Data Portability ---
Author Organization [facility] 9+, Main Office Address [address] [place] [address] Assessment No assessment recorded. Plan of Treatment Reminders Order Date Submit Date Provider Last Modified By Organization Details Last Modified Time Details Appointments None recorded. Lab TSH + free T4, serum 2022 023 [employer] [facility], [address], [place], [id number], 3 05:22:34 CBC w/ auto diff 2022 023 [employer] [facility], [address], [place], [address], 3 05:22:39 CMP, serum or plasma 2022 023 [employer] [facility], [address], [place], [address], 3 05:22:37 lipid panel, serum 2022 023 [employer] [facility], [address], [place], [address], 3 05:22:36 HbA1c (hemoglobin A1c), blood 2022 023 [employer] [facility], [address], [place], [address], 3 05:22:38 Referral None recorded. Procedures None recorded. Surgeries None recorded. Imaging None recorded. Medication Orders triamcinolo ne acetonide 0.1 % topical cream 2022 023 [id number], [address], [place], [place], [phone], 3 14:21:41 lorazepam 1 mg tablet 2022 023 [id number], [address], [place], [place], [phone], 3 12:31:51 Patient TargetsNo targets recorded. Patient InstructionsNo instructions recorded. Reason for Referral None Reported. Results Created Date Observation Date Name Description Value Unit Range Abnormal Flag Note LastModifiedBy Organization Detail LastModifiedTime 05/28/20 22 05/29/2022 REFLE XIVE URINE CULTU RE reflexive urine culture NO CULTU RE INDIC ATED Not Available [address], [address], 05/29/2022 06:48:23 05/28/2005/29/2022 URINA LYSIS , COMPL ETE W/REF KELSI TO CULTU RE color yellow yellow normal Not Available [address], [address], 05/29/2022 06:48:22 05/28/20 22 05/29/2022 URINA LYSIS , COMPL ETE W/REF KELSI TO CULTU RE appearance clear clear normal Not Available [address], [address], 05/29/2022 06:48:22 05/28/20 22 05/29/2022 URINA LYSIS , COMPL ETE W/REF KELSI TO CULTU RE specific gravity 1.017 1.001- 1.035 normal Not Available [address], [address], 05/29/2022 06:48:22 05/28/20 22 05/29/2022 URINA LYSIS , COMPL ETE W/REF KELSI TO CULTU RE pH 6.0 5.0-8. 0 normal Not Available [address], [address], 05/29/2022 06:48:22 05/28/20 22 05/29/2022 URINA LYSIS , COMPL ETE W/REF KELSI TO CULTU RE glucose negati ve negati ve normal Not Available [address], [address], 05/29/2022 06:48:22 05/28/20 22 05/29/2022 URINA LYSIS , COMPL ETE W/REF KELSI TO CULTU RE bilirubin negati ve negati ve normal Not Available [address], [address], 05/29/2022 06:48:22 05/28/20 22 05/29/2022 URINA LYSIS , COMPL ETE W/REF KELSI TO CULTU RE ketones negati ve negati ve normal Not Available [address], [address], 05/29/2022 06:48:22 05/28/20 22 05/29/2022 URINA LYSIS , COMPL ETE W/REF KELSI TO CULTU RE occult blood negati ve negati ve normal Not Available [address], [address], 05/29/2022 06:48:22 05/28/20 22 05/29/2022 URINA LYSIS , COMPL ETE W/REF KELSI TO CULTU RE protein negati ve negati ve normal Not Available [address], [address], 05/29/2022 06:48:22 05/28/20 22 05/29/2022 URINA LYSIS , COMPL ETE W/REF KELSI TO CULTU RE nitrite negati ve negati ve normal Not Available [facility] [address] [address], [place], [address], 05/29/2022 06:48:22 05/28/20 22 05/29/2022 URINA LYSIS , COMPL ETE W/REF KELSI TO CULTU RE leukocyte esterase negati ve negati ve normal Not Available [address], [address], 05/29/2022 06:48:22 05/28/20 22 05/29/2022 URINA LYSIS , COMPL ETE W/REF KELSI TO CULTU RE WBC none seen /hpf < or = 5 normal Not Available [address], [address], 05/29/2022 06:48:22 05/28/20 22 05/29/2022 URINA LYSIS , COMPL ETE W/REF KELSI TO CULTU RE RBC none seen /hpf < or = 2 normal Not Available [address], [address], 05/29/2022 06:48:22 05/28/20 22 05/29/2022 URINA LYSIS , COMPL ETE W/REF KELSI TO CULTU RE squamous epithelial cells none seen /hpf < or = 5 normal Not Available [address], [address], 05/29/2022 06:48:22 05/28/20 22 05/29/2022 URINA LYSIS , COMPL ETE W/REF KELSI TO CULTU RE bacteria none seen /hpf none seen normal Not Available [address], [address], 05/29/2022 06:48:22 05/28/20 22 05/29/2022 URINA LYSIS , COMPL ETE W/REF KELSI TO CULTU RE hyaline cast none seen /lpf none seen normal Not Available [address], [address], 05/29/2022 06:48:22 05/28/20 22 05/29/2022 CBC (INCL UDES DIFF/ PLT) white blood cell count 9.6 thous and/u L 3.8-10 .8 normal Not Available [address], [address], 05/29/2022 06:48:21 05/28/20 22 05/29/2022 CBC (INCL UDES DIFF/ PLT) red blood cell count 4.70 carlos on/uL 3.80-5 .10 normal Not Available [address], [address], 05/29/2022 06:48:21 05/28/20 22 05/29/2022 CBC (INCL UDES DIFF/ PLT) hemoglobin 13.3 g/dL 11.7-1 5.5 normal Not Available [address], [address], 05/29/2022 06:48:21 05/28/20 22 05/29/2022 CBC (INCL UDES DIFF/ PLT) hematocrit 39.9 % 35.0-4 5.0 normal Not Available [address], [address], 05/29/2022 06:48:21 05/28/20 22 05/29/2022 CBC (INCL UDES DIFF/ PLT) MCV 84.9 fL 80.0-1 00.0 normal Not Available [address], [address], 05/29/2022 06:48:21 05/28/20 22 05/29/2022 CBC (INCL UDES DIFF/ PLT) MCH 28.3 pg 27.0-3 3.0 normal Not Available [address], [address], 05/29/2022 06:48:21 05/28/20 22 05/29/2022 CBC (INCL UDES DIFF/ PLT) MCHC 33.3 g/dL 32.0-3 6.0 normal Not Available [address], [address], 05/29/2022 06:48:21 05/28/20 22 05/29/2022 CBC (INCL UDES DIFF/ PLT) RDW 12.8 % 11.0-1 5.0 normal Not Available [address], [address], 05/29/2022 06:48:21 05/28/20 22 05/29/2022 CBC (INCL UDES DIFF/ PLT) platelet count 328 thous and/u L 140-40 0 normal Not Available [address], [address], 05/29/2022 06:48:21 05/28/20 22 05/29/2022 CBC (INCL UDES DIFF/ PLT) MPV 9.7 fL 7.5-12 .5 normal Not Available [address], [address], 05/29/2022 06:48:21 05/28/20 22 05/29/2022 CBC (INCL UDES DIFF/ PLT) absolute neutrophils 4982 cells /uL 1500-7 800 normal Not Available [address], [address], 05/29/2022 06:48:21 05/28/20 22 05/29/2022 CBC (INCL UDES DIFF/ PLT) absolute lymphocytes 3677 cells /uL 850-39 00 normal Not Available [address], [address], 05/29/2022 06:48:21 05/28/20 22 05/29/2022 CBC (INCL UDES DIFF/ PLT) absolute monocytes 605 cells /uL 200-95 0 normal Not Available [address], [address], 05/29/2022 06:48:21 05/28/20 22 05/29/2022 CBC (INCL UDES DIFF/ PLT) absolute eosinophils 259 cells /uL 15-500 normal Not Available [facility] [address], [address], 05/29/2022 06:48:21 05/28/20 22 05/29/2022 CBC (INCL UDES DIFF/ PLT) absolute basophils 77 cells /uL 0-200 normal Not Available [facility] [address], [address], 05/29/2022 06:48:21 05/28/20 22 05/29/2022 CBC (INCL UDES DIFF/ PLT) neutrophils 51.9 % normal Not Available [facility] [address], [address], 05/29/2022 06:48:21 05/28/20 22 05/29/2022 CBC (INCL UDES DIFF/ PLT) lymphocytes 38.3 % normal Not Available [facility] [address], [address], 05/29/2022 06:48:21 05/28/20 22 05/29/2022 CBC (INCL UDES DIFF/ PLT) monocytes 6.3 % normal Not Available [facility] [address], [address], 05/29/2022 06:48:21 05/28/20 22 05/29/2022 CBC (INCL UDES DIFF/ PLT) eosinophils 2.7 % normal Not Available [facility] [address], [address], 05/29/2022 06:48:21 05/28/20 22 05/29/2022 CBC (INCL UDES DIFF/ PLT) basophils 0.8 % normal Not Available [facility] [address], [address], 05/29/2022 06:48:21 05/28/20 22 05/29/2022 T4, FREE T4, free 1.0 NG/dL 0.8-1. 8 normal Not Available [facility] [address] [place], [address], 05/29/2022 06:48:21 05/28/20 22 05/29/2022 TSH TSH 3.08 mIU/L normal Refer ence Range > or = 20 Years 0.40- 4.50 Pregn melchor Range s First trime ster 0.26- 2.66 Secon d trime ster 0.55- 2.73 Third trime ster 0.43- 2.91 Not Available [facility] [address] [place], [address], 05/29/2022 06:48:20 05/28/20 22 05/29/2022 HEMOG LOBIN A1C hemoglobin A1C 5.2 %_of_ total _HGB <5.7 normal For the purpo se of screabhi ledesmag for the prese nce of diabe bridget: <5.7% Consi stent with the absen ce of diabe bridget 5.7-6 .4% Consi stent with incre ased risk for diabe bridget (pred iabet es) > or =6.5% Consi stent with diabe bridget This assay resul t is consi stent with a decre ased risk of diabe bridget. Curre ntly, no conse nsus exist s cyndie faulkner use of hemog lobin A1c for diagn osis of diabe bridget in child iván. Accor ding to Ameri can Diabe bridget Assoc iatio n (ADA) guide lines , hemog lobin A1c <7.0% repre sents optim al contr ol in non-p regna nt diabe tic patie nts. Diffe rent metri cs may apply to speci fic patie nt popul ation s. Stand ards of Medic al Care in Diabe bridget(A DA). Not Available [facility] [address] [place], [address], 05/29/2022 06:48:19 05/28/20 22 05/29/2022 COMPR EHENS RAY METAB OLIC PANEL glucose 88 mg/dL 65-99 normal Fasti ng refer ence inter greg Not Available [address], [address], 05/29/2022 06:48:19 05/28/20 22 05/29/2022 COMPR EHENS RAY METAB OLIC PANEL urea nitrogen (BUN) 11 mg/dL 7-25 normal Not Available [address], [address], 05/29/2022 06:48:19 05/28/20 22 05/29/2022 COMPR EHENS RAY METAB OLIC PANEL creatinine 0.99 mg/dL 0.50-0 .97 high Not Available [address], [address], 05/29/2022 06:48:19 05/28/20 22 05/29/2022 COMPR EHENS RAY METAB OLIC PANEL eGFR 77 mL/mi n/1.7 3m2 > or = 60 normal The eGFR is based on the CKD-E PI 2020 bell shankar. To calcu late the new eGFR from a previ ous Creat inine or Cysta tin C resul t, go to https ://cornell pollard.o humphrey/sandie barragan s/ kdoqi /gfr% 5Fcal culat or Not Available [address], [address], 05/29/2022 06:48:19 05/28/20 22 05/29/2022 COMPR EHENS RAY METAB OLIC PANEL BUN/creatini ne ratio 11 (calc ) 6-22 normal Not Available [address], [address], 05/29/2022 06:48:19 05/28/20 22 05/29/2022 COMPR EHENS RAY METAB OLIC PANEL sodium 140 mmol/ L 135-14 6 normal Not Available [address], [address], 05/29/2022 06:48:19 05/28/20 22 05/29/2022 COMPR EHENS RAY METAB OLIC PANEL potassium 4.2 mmol/ L 3.5-5. 3 normal Not Available [address], [address], 05/29/2022 06:48:19 05/28/20 22 05/29/2022 COMPR EHENS RAY METAB OLIC PANEL chloride 101 mmol/ L 98-110 normal Not Available [address], [address], 05/29/2022 06:48:19 05/28/20 22 05/29/2022 COMPR EHENS RAY METAB OLIC PANEL carbon dioxide 27 mmol/ L 20-32 normal Not Available [address], [address], 05/29/2022 06:48:19 05/28/20 22 05/29/2022 COMPR EHENS RAY METAB OLIC PANEL calcium 9.6 mg/dL 8.6-10 .2 normal Not Available [address], [address], 05/29/2022 06:48:19 05/28/20 22 05/29/2022 COMPR EHENS RAY METAB OLIC PANEL protein, total 7.2 g/dL 6.1-8. 1 normal Not Available [address], [address], 05/29/2022 06:48:19 05/28/20 22 05/29/2022 COMPR EHENS RAY METAB OLIC PANEL albumin 4.5 g/dL 3.6-5. 1 normal Not Available [address], [address], 05/29/2022 06:48:19 05/28/20 22 05/29/2022 COMPR EHENS RAY METAB OLIC PANEL globulin 2.7 g/dL_ (calc ) 1.9-3. 7 normal Not Available [address], [address], 05/29/2022 06:48:19 05/28/20 22 05/29/2022 COMPR EHENS RAY METAB OLIC PANEL albumin/glob ulin ratio 1.7 (calc ) 1.0-2. 5 normal Not Available [address], [address], 05/29/2022 06:48:19 05/28/20 22 05/29/2022 COMPR EHENS RAY METAB OLIC PANEL bilirubin, total 0.4 mg/dL 0.2-1. 2 normal Not Available [address], [address], 05/29/2022 06:48:19 05/28/20 22 05/29/2022 COMPR EHENS RAY METAB OLIC PANEL alkaline phosphatase 122 U/L 31-125 normal Not Available [facility] [address], [address], 05/29/2022 06:48:19 05/28/20 22 05/29/2022 COMPR EHENS RAY METAB OLIC PANEL AST 34 U/L 10-30 high Not Available [facility] [address], [address], 05/29/2022 06:48:19 05/28/20 22 05/29/2022 COMPR EHENS RAY METAB OLIC PANEL ALT 44 U/L 6-29 high Not Available [facility] [address], [address], 05/29/2022 06:48:19 05/28/20 22 05/29/2022 LIPID PANEL WITH REFLE X TO DIREC T LDL cholesterol, total 230 mg/dL <200 high Not Available [facility] [address] [address] [place], [address], 05/29/2022 06:48:18 05/28/20 22 05/29/2022 LIPID PANEL WITH REFLE X TO DIREC T LDL HDL cholesterol 67 mg/dL > or = 50 normal Not Available [facility] [address] [address] [place], [address], 05/29/2022 06:48:18 05/28/20 22 05/29/2022 LIPID PANEL WITH REFLE X TO DIREC T LDL triglyceride s 90 mg/dL <150 normal Not Available [facility] [address] [address] [place], [address], 05/29/2022 06:48:18 05/28/20 22 05/29/2022 LIPID PANEL WITH REFLE X TO DIREC T LDL LDL-choleste rol 143 mg/dL _(montana c) high Refer ence range : <100 Flakito able range <100 mg/dL for prima ry preve ntion ; <70 mg/dL for patie nts with CHD or diabe tic patie nts with > or = 2 CHD risk facto rs. LDL-C is now calcu lated using the Kelly n-Hop kins calcu anjelica n, which is a valid ated novel metho d cristoferi ding kaiden r accur acy than the [employer] equat ion in the estim ation of LDL-C . Kelly davis SS et al. MADAI. 2013; 310(1 9): 2061- 2068 (http ://ed ucati on.Qu Obed matias tics. com/f aq/FA Q164) Not Available [facility] [address] [address] [place], [address], 05/29/2022 06:48:18 05/28/20 22 05/29/2022 LIPID PANEL WITH REFLE X TO DIREC T LDL chol/HDLC ratio 3.4 (calc ) <5.0 normal Not Available [facility] [address] [address] [place], [address], 05/29/2022 06:48:18 05/28/20 22 05/29/2022 LIPID PANEL WITH REFLE X TO DIREC T LDL non HDL cholesterol 163 mg/dL _(montana c) <130 high For patie nts with diabe bridget plus 1 major ASCVD risk facto r, treat ing to a non-H DL-C goal of <100 mg/dL (LDL- C of <70 mg/dL ) is consi dered a thera peuti c optio n. Not Available [address] [address] [place], [address], 05/29/2022 06:48:18 08/01/2008/02/2022 TSH+F REE T4 TSH 0.91 mIU/L normal Refer ence Range > or = 20 Years 0.40- 4.50 Pregn melchor Range s First trime ster 0.26- 2.66 Secon d trime ster 0.55- 2.73 Third trime ster 0.43- 2.91 Not Available [facility] [address] [address] [place], [address], 08/02/2022 08:38:19 08/01/2008/02/2022 TSH+F REE T4 T4, free 1.0 NG/dL 0.8-1. 8 normal Not Available [facility] [address] [place], [address], 08/02/2022 08:38:19 02/13/20 23 02/13/2023 TSH TSH 1.07 mIU/L normal Refer ence Range > or = 20 Years 0.40- 4.50 Pregn melchor Range s First trime ster 0.26- 2.66 Secon d trime ster 0.55- 2.73 Third trime ster 0.43- 2.91 Not Available [facility] [address] [address] [place], [address], 02/13/2023 09:11:59 02/13/20 23 02/13/2023 T4, FREE T4, free 1.0 NG/dL 0.8-1. 8 normal Not Available [address], [address], 02/13/2023 09:12:00 08/14/2008/15/2023 TSH+F REE T4 TSH 1.10 mIU/L normal Refer ence Range > or = 20 Years 0.40- 4.50 Pregn melchor Range s First trime ster 0.26- 2.66 Secon d trime ster 0.55- 2.73 Third trime ster 0.43- 2.91 Not Available [address], [address], 08/15/2023 05:22:34 08/14/2008/15/2023 TSH+F REE T4 T4, free 1.1 NG/dL 0.8-1. 8 normal Not Available [address], [address], 08/15/2023 05:22:34 08/14/20 23 08/15/2023 LIPID PANEL WITH RATIO S cholesterol, total 174 mg/dL <200 normal Not Available [address], [address], 08/15/2023 05:22:36 08/14/20 23 08/15/2023 LIPID PANEL WITH RATIO S HDL cholesterol 45 mg/dL > or = 50 low Not Available [address], [address], 08/15/2023 05:22:36 08/14/20 23 08/15/2023 LIPID PANEL WITH RATIO S triglyceride s 101 mg/dL <150 normal Not Available [address], [address], 08/15/2023 05:22:36 08/14/20 23 08/15/2023 LIPID PANEL WITH RATIO S LDL-choleste rol 110 mg/dL _(montana c) high Refer ence range : <100 Flakito able range <100 mg/dL for prima ry preve ntion ; <70 mg/dL for patie nts with CHD or diabe tic patie nts with > or = 2 CHD risk facto rs. LDL-C is now calcu lated using the Kelly n[employer]Hop kins calcu anjelica davsi, which is a valid ated novel metho d provi ding kaiden r accur acy than the [employer] equat ion in the estim ation of LDL-C . Kelly davis SS et al. MADAI. 2013; 310(1 9): 206- 2067 (http ://ed ucati on.Qu estDi Yooli. com/f aq/FA Q164) Not Available [facility] [address], [address], 08/15/2023 05:22:36 08/14/20 23 08/15/2023 LIPID PANEL WITH RATIO S chol/HDLC ratio 3.9 (calc ) <5.0 normal Not Available [facility] [address], [address], 08/15/2023 05:22:36 08/14/20 23 08/15/2023 LIPID PANEL WITH RATIO S LDL/HDL ratio 2.4 (calc ) Below avera ge Risk: <2.34 [place] ge Risk: 2.35- 4.12 Moder ate Risk: 4.13- 5.56 High Risk: >5.57 Not Available [facility] [address], [address], 08/15/2023 05:22:36 08/14/20 23 08/15/2023 LIPID PANEL WITH RATIO S non HDL cholesterol 129 mg/dL _(montana c) <130 normal For patie nts with diabe bridget plus 1 major ASCVD risk facto r, treat ing to a non-H DL-C goal of <100 mg/dL (LDL- C of <70 mg/dL ) is consi fannyd a kathy menchaca optio n. Not Available [facility] [address] [place], [address], 08/15/2023 05:22:36 08/14/20 23 08/15/2023 COMPR EHENS RAY METAB OLIC PANEL glucose 80 mg/dL 65-99 normal Fasti ng refer ence inter greg Not Available [address], [address], 08/15/2023 05:22:37 08/14/20 23 08/15/2023 COMPR EHENS RAY METAB OLIC PANEL urea nitrogen (BUN) 12 mg/dL 7-25 normal Not Available [address], [address], 08/15/2023 05:22:37 08/14/2008/15/2023 COMPR EHENS RAY METAB OLIC PANEL creatinine 0.88 mg/dL 0.50-0 .97 normal Not Available [address], [address], 08/15/2023 05:22:37 08/14/20 23 08/15/2023 COMPR EHENS RAY METAB OLIC PANEL eGFR 88 mL/mi n/1.7 3m2 > or = 60 normal Not Available [address], [address], 08/15/2023 05:22:37 08/14/20 23 08/15/2023 COMPR EHENS RAY METAB OLIC PANEL BUN/creatini ne ratio SEE NOTE: (calc ) 6-22 Not Repor justen: BUN and Creat inine are withi n refer ence range . Not Available [address], [address], 08/15/2023 05:22:37 08/14/20 23 08/15/2023 COMPR EHENS RAY METAB OLIC PANEL sodium 138 mmol/ L 135-14 6 normal Not Available [address], [address], 08/15/2023 05:22:37 08/14/20 23 08/15/2023 COMPR EHENS RAY METAB OLIC PANEL potassium 4.1 mmol/ L 3.5-5. 3 normal Not Available [address], [address], 08/15/2023 05:22:37 08/14/20 23 08/15/2023 COMPR EHENS RAY METAB OLIC PANEL chloride 105 mmol/ L 98-110 normal Not Available [address], [address], 08/15/2023 05:22:37 08/14/20 23 08/15/2023 COMPR EHENS RAY METAB OLIC PANEL carbon dioxide 22 mmol/ L 20-32 normal Not Available [address], [address], 08/15/2023 05:22:37 08/14/20 23 08/15/2023 COMPR EHENS RAY METAB OLIC PANEL calcium 9.3 mg/dL 8.6-10 .2 normal Not Available [address], [address], 08/15/2023 05:22:37 08/14/20 23 08/15/2023 COMPR EHENS RAY METAB OLIC PANEL protein, total 7.1 g/dL 6.1-8. 1 normal Not Available [address], [address], 08/15/2023 05:22:37 08/14/20 23 08/15/2023 COMPR EHENS RAY METAB OLIC PANEL albumin 4.5 g/dL 3.6-5. 1 normal Not Available [address], [address], 08/15/2023 05:22:37 08/14/20 23 08/15/2023 COMPR EHENS RAY METAB OLIC PANEL globulin 2.6 g/dL_ (calc ) 1.9-3. 7 normal Not Available [address], [address], 08/15/2023 05:22:37 08/14/2008/15/2023 COMPR EHENS RAY METAB OLIC PANEL albumin/glob ulin ratio 1.7 (calc ) 1.0-2. 5 normal Not Available [address], [address], 08/15/2023 05:22:37 08/14/2008/15/2023 COMPR EHENS RAY METAB OLIC PANEL bilirubin, total 0.3 mg/dL 0.2-1. 2 normal Not Available [address], [address], 08/15/2023 05:22:37 08/14/20 23 08/15/2023 COMPR EHENS RAY METAB OLIC PANEL alkaline phosphatase 109 U/L 31-125 normal Not Available [address], [address], 08/15/2023 05:22:37 08/14/20 23 08/15/2023 COMPR EHENS RAY METAB OLIC PANEL AST 19 U/L 10-30 normal Not Available [address], [address], 08/15/2023 05:22:37 08/14/20 23 08/15/2023 COMPR EHENS RAY METAB OLIC PANEL ALT 13 U/L 6-29 normal Not Available [address], [address], 08/15/2023 05:22:37 08/14/2008/15/2023 HEMOG LOBIN A1C hemoglobin A1C 5.0 %_of_ total _HGB <5.7 normal For the purpo se of kassy bateman for the prese nce of diabe bridget: <5.7% Consi stent with the absen ce of diabe bridget 5.7-6 .4% Consi stent with incre ased risk for diabe bridget (pred iabet es) > or =6.5% Consi stent with diabe bridget This assay resul t is consi stent with a decre ased risk of diabe bridget. Curre ntly, no conse nsus exist s cyndie faulkner use of hemog lobin A1c for diagn osis of diabe bridget in child iván. Accor ding to Ameri can Diabe bridget Assoc iatio n (ADA) guide lines , hemog lobin A1c <7.0% repre sents optim al contr ol in non-p regna nt diabe tic patie nts. Diffe rent metri cs may apply to speci fic patie nt popul ation s. Stand ards of Medic al Care in Diabe bridget(A DA). Not Available [address] [place], [address], 08/15/2023 05:22:38 08/14/2008/15/2023 CBC (INCL UDES DIFF/ PLT) white blood cell count 7.9 thous and/u L 3.8-10 .8 normal Not Available [address], [address], 08/15/2023 05:22:39 08/14/20 23 08/15/2023 CBC (INCL UDES DIFF/ PLT) red blood cell count 4.83 carlos on/uL 3.80-5 .10 normal Not Available [address], [address], 08/15/2023 05:22:39 08/14/20 23 08/15/2023 CBC (INCL UDES DIFF/ PLT) hemoglobin 14.0 g/dL 11.7-1 5.5 normal Not Available [facility] [address], [address], 08/15/2023 05:22:39 08/14/20 23 08/15/2023 CBC (INCL UDES DIFF/ PLT) hematocrit 41.0 % 35.0-4 5.0 normal Not Available [address], [address], 08/15/2023 05:22:39 08/14/2008/15/2023 CBC (INCL UDES DIFF/ PLT) MCV 84.9 fL 80.0-1 00.0 normal Not Available [address], [address], 08/15/2023 05:22:39 08/14/2008/15/2023 CBC (INCL UDES DIFF/ PLT) MCH 29.0 pg 27.0-3 3.0 normal Not Available [address], [address], 08/15/2023 05:22:39 08/14/20 23 08/15/2023 CBC (INCL UDES DIFF/ PLT) MCHC 34.1 g/dL 32.0-3 6.0 normal Not Available [address], [address], 08/15/2023 05:22:39 08/14/20 23 08/15/2023 CBC (INCL UDES DIFF/ PLT) RDW 13.0 % 11.0-1 5.0 normal Not Available [address], [address], 08/15/2023 05:22:39 08/14/2008/15/2023 CBC (INCL UDES DIFF/ PLT) platelet count 307 thous and/u L 140-40 0 normal Not Available [address], [address], 08/15/2023 05:22:39 08/14/20 23 08/15/2023 CBC (INCL UDES DIFF/ PLT) MPV 10.7 fL 7.5-12 .5 normal Not Available [address], [address], 08/15/2023 05:22:39 08/14/20 23 08/15/2023 CBC (INCL UDES DIFF/ PLT) absolute neutrophils 4511 cells /uL 1500-7 800 normal Not Available [address], [address], 08/15/2023 05:22:39 08/14/20 23 08/15/2023 CBC (INCL UDES DIFF/ PLT) absolute lymphocytes 2773 cells /uL 850-39 00 normal Not Available [address], [address], 08/15/2023 05:22:39 08/14/2008/15/2023 CBC (INCL UDES DIFF/ PLT) absolute monocytes 411 cells /uL 200-95 0 normal Not Available [address], [address], 08/15/2023 05:22:39 08/14/2008/15/2023 CBC (INCL UDES DIFF/ PLT) absolute eosinophils 158 cells /uL 15-500 normal Not Available [address], [address], 08/15/2023 05:22:39 08/14/20 23 08/15/2023 CBC (INCL UDES DIFF/ PLT) absolute basophils 47 cells /uL 0-200 normal Not Available [address], [address], 08/15/2023 05:22:39 08/14/20 23 08/15/2023 CBC (INCL UDES DIFF/ PLT) neutrophils 57.1 % normal Not Available [address], [address], 08/15/2023 05:22:39 08/14/20 23 08/15/2023 CBC (INCL UDES DIFF/ PLT) lymphocytes 35.1 % normal Not Available [address], [address], 08/15/2023 05:22:39 08/14/20 23 08/15/2023 CBC (INCL UDES DIFF/ PLT) monocytes 5.2 % normal Not Available [address] [address] [place], [address], 08/15/2023 05:22:39 08/14/20 23 08/15/2023 CBC (INCL UDES DIFF/ PLT) eosinophils 2.0 % normal Not Available [address] [address] [place], [address], 08/15/2023 05:22:39 08/14/20 23 08/15/2023 CBC (INCL UDES DIFF/ PLT) basophils 0.6 % normal Not Available [address] [address] [place], [address], 08/15/2023 05:22:39 05/28/20 22 05/28/2022 US, axiyuri a No observ ation record ed. [id number] [facility] [address], [place], [address], 12/24/2022 08:13:30 Result Notes None recorded. Problems Name Problem SNOMED Code Status Onset Date Resolution Date Notes Provider Name and Address Organization Details Recorded Time Acne 80791381 Active 2021 Not Available [facility] 3 08:09:26 Insomnia 706988609 Active 2021 Not Available [facility] 3 08:09:26 Mixed anxiety and depressive disorder 533043169 Active 2018 Not Available [facility] 3 08:09:26 Gastroesop hageal reflux disease without esophagiti s 046048785 Active 2021 Not Available [facility] 3 08:09:26 Loss of hair 539953399 Active 2021 Not Available [facility] 3 08:09:26 Mass of axilla 324726339 Active 2021 Not Available [facility] 3 08:09:26 Dyssomnia 61990259 Active 2021 Not Available [facility] 3 08:09:26 Subclinica l hypothyroi dism 81541987 Active 2021 Not Available [facility] 3 08:09:26 Irregular periods 10650089 Completed Not Available [facility] 3 08:09:26 Pityriasis rosea 70355700 Active 2022 JAYDEN Joyce [address] [facility], [facility] [address], [place], [address] , [place] [facility] 3 14:21:02 Problem Notes None recorded. Procedures Surgical History Date Name Laterality Status Provider Name and Address Organization Details Recorded Time 02/15/2018 Date of Last Pap Smear completed Not Available [facility] 12/24/2022 08:05:51 Imaging Results Imaging Date Name Status LastModified by Organiz ation Details LastModified Time 05/28/2022 US, axilla completed [id number] 026 [facility] 2022 Claudia Chambers [facility] [address], [place], [address], 12/24/2022 08:13:30 Procedure Notes None recorded. Medical Equipment None Reported. Allergies Allergen ID Allergen Name Allergen Category Reaction Reaction Severity Criticality Documentation Date Start Date Code Code System Note Provider Name and Address Organization Details Recorded Time 04420 Substance with sulfonami de structure and antibacte rial mechanism of action (substanc e) medicatio n anaphylax is Not available Not available 12/24/2022 70879 8003 SNOMED Not Available [facility] 3 08:13:26 04475 prednison e medicatio n rash moderate Not available 12/24/20222017 8640 RxNorm Not Available [facility] 3 08:13:26 88049 Levaquin medicatio n itching Not available Not available 12/24/2022 40127 2 RxNorm Not Available [facility] 3 08:13:26 25860 Cipro medicatio n hives Not available Not available 12/24/2022 82118 3 RxNorm Not Available [facility] 3 08:13:27 47794 Cefzil medicatio n hives Not available Not available 12/24/2022 26554 1 RxNorm Not Available [facility] 3 08:13:27 03102 amoxicill in medicatio n rash Not available Not available 12/24/2022 723 RxNorm Not Available [facility] 3 08:13:27 Medications Name Sig Start Date Stop Date Status Note LastModified by Organization Details LastModified Time Colace 100 mg capsule Take 1 capsule twice a day by oral route. active Not Available Not Available No t Available venlafaxine ER 37.5 mg capsule,ext ended release 24 hr Take 1 capsule every day by oral route for 90 days. 02/27 completed Not Available Not Available Not Available prednisone 10 mg tablet 02/27 completed Not Available Not Available Not Available venlafaxine ER 75 mg capsule,ext ended release 24 hr TAKE 1 CAPSULE DAILY active Not Available Not Available No t Available doxycycline hyclate 100 mg capsule 02/15 completed Not Available Not Available Not Available paroxetine 10 mg tablet active Not Available Not Available Not Available erythromyci n 500 mg tablet TK 1 T PO BID FOR 10 DAYS 02/12 completed Not Available Not Available Not Available hydrocortis one-pramoxi ne 2.5 %-1 % rectal cream Insert 1 g twice a day by rectal route as needed for 7 days. 09/02 completed Not Available Not Available Not Available clarithromy jose m 250 mg tablet 02/27 completed Not Available Not Available Not Available azithromyci n 250 mg tablet 02/27 completed Not Available Not Available Not Available fluconazole 150 mg tablet Take 1 tablet by oral route. active Not Available Not Available No t Available clarithromy jose m 500 mg tablet TK 1 T PO Q 12 H active Not Available Not Available No t Available hydrocodone 5 mg-acetamin ophen 325 mg tablet active Not Available Not Available No t Available prednisone 20 mg tablet TK 3 TS PO QD FOR 3 DAYS 2 QD FOR 3 DAYS1 T QD FOR 3 DAYS AND THEN 1/2 T FOR 3 DAYS active Not Available Not Available No t Available phentermine 37.5 mg tablet TAKE 1 TABLET BY MOUTH EVERY DAY IN THE MORNING 07/22 /2022 completed Not Available Not Available Not Available sulfamethox azole 800 mg-trimetho prim 160 mg tablet Take 1 tablet every 12 hours by oral route. 02/27 completed Not Available Not Available Not Available omeprazole 40 mg capsule,del ayed release 02/15 completed Not Available Not Available Not Available triamcinolo ne acetonide 0.1 % topical cream APPLY THIN LAYER TOPICALLY TO THE AFFECTED AREA TWICE DAILY active Not Available Not Available No t Available Kenalog 40 mg/mL suspension for injection Take 2 mL by injection route. 05/31 completed [facility] # [id number] [id number] Not Available Not Available Not Available hydrocortis one 2.5 % topical cream with perineal applicator 09/02 completed Not Available Not Available Not Available alprazolam 0.5 mg tablet TAKE 1 TABLET BY MOUTH TWICE DAILY NEEDED FOR ANXIETY 04/02 completed Not Available Not Available Not Available alprazolam 0.25 mg tablet 02/27 completed Not Available Not Available Not Available paroxetine 20 mg tablet TK 1 T PO QD 02/15 completed Not Available Not Available Not Available polymyxin B sulfate 10,000 unit-trimet hoprim 1 mg/mL eye drops INT 1 GTT AEY QID 02/12 completed Not Available Not Available Not Available omeprazole 20 mg capsule,del ayed release TAKE 1 CAPSULE DAILY active Not Available Not Available No t Available Euthyrox 50 mcg tablet one tab po daily active Not Available Not Available No t Available hydroxyzine HCl 25 mg tablet PRN 07/15 completed Not Available Not Available Not Available zaleplon 10 mg capsule TAKE 1 CAPSULE BY MOUTH EVERY DAY AT BEDTIME 07/01 completed Not Available Not Available Not Available lorazepam 1 mg tablet TAKE 1 TABLET BY MOUTH AT BEDTIME NEEDED active Not Available Not Available No t Available azelastine 137 mcg (0.1 %) nasal spray 02/28 completed Not Available Not Available Not Available epinephrine 0.3 mg/0.3 mL injection, auto-inject or INJECT INTRAMUSC ULARLY DIRECTED 02/28 completed Not Available Not Available Not Available polyethylen e glycol 3350 17 gram/dose oral powder Take 17 g 3 times a week by oral route as needed. 09/02 completed Not Available Not Available Not Available Ventolin HFA 90 mcg/actuati on aerosol inhaler 02/12 completed Not Available Not Available Not Available tobramycin 0.3 %-dexametha sone 0.1 % eye drops,suspe nsion 02/28 completed Not Available Not Available Not Available clindamycin 1 % lotion 02/28 completed Not Available Not Available Not Available bupropion HCl XL 300 mg 24 hr tablet, extended release TAKE 1 TABLET DAILY 2022 active Not Available Not Available Not Avai lable bupropion HCl XL 150 mg 24 hr tablet, extended release Take 1 tablet every day by oral route for 90 days. 03/25 completed Not Available Not Available Not Available 1.5/30 (28) 1.5 mg-30 mcg (21)/75 mg (7) tablet TAKE 1 TABLET DAILY 05/16 completed Not Available Not Available Not Available nitrofurant oin monohydrate /macrocryst als 100 mg capsule Take 1 capsule every 12 hours by oral route. 02/27 completed Not Available Not Available Not Available eszopiclone 3 mg tablet TAKE 1 TABLET BY MOUTH EVERY DAY AT BEDTIME 05/16 completed Not Available Not Available Not Available olopatadine 0.2 % eye drops 02/28 completed Not Available Not Available Not Available clindamycin 1.2 % (1 % base)-benzo yl peroxide 5 % topical gel APPLY TOPICALLY TO THE AFFECTED AREA TWICE DAILY IN THE MORNING AND IN THE EVENING 06/30 completed Not Available Not Available Not Available Havrix (PF) 1,440 CATRACHITO unit/mL intramuscul ar syringe active Not Available Not Available N ot Available Dayvigo 10 mg tablet Take 1 tablet every day by oral route at bedtime. 04/15 completed Not Available Not Available Not Available Flowflex COVID-19 Antigen Home Test kit 04/02 completed Not Available Not Available Not Available Vitals Date Recorded Body mass index (BMI) Body height Oxygen saturation Oxygen saturation in Arterial blood by Pulse oximetry Heart rate Respiratory rate Body temperature Body weight Systolic blood pressure Diastolic blood pressure Provider Name and Address Organization Details Last Updated DateTime 2 34.6 kg/m2 160.02 cm 97 % 97 % 100 /min 16 /min 97.9 [degF] 69890.9 5 g 128 mm[Hg] 80 mm[Hg] Not Available [facility] 3 08:08:48 Date Recorded Body mass index (BMI) Body height Oxygen saturation Oxygen saturation in Arterial blood by Pulse oximetry Heart rate Respiratory rate Body temperature Body weight Systolic blood pressure Diastolic blood pressure Provider Name and Address Organization Details Last Updated DateTime 2 34 kg/m2 160.02 cm 98 % 98 % 98 /min 16 /min 97.8 [degF] 14457.7 4 g 110 mm[Hg] 70 mm[Hg] Not Available [facility] 3 08:08:48 Date Recorded Body mass index (BMI) Body height Oxygen saturation Oxygen saturation in Arterial blood by Pulse oximetry Heart rate Body temperature Body weight Systolic blood pressure Diastolic blood pressure Provider Name and Address Organization Details Last Updated DateTime 2 35.1 kg/m2 160.02 cm 99 % 99 % 92 /min 97.3 [degF] 36329.2 9 g 118 mm[Hg] 70 mm[Hg] Not Available [facility] 3 08:08:48 Date Recorded Body height Body temperature Body mass index (BMI) Body weight Heart rate Oxygen saturation Oxygen saturation in Arterial blood by Pulse oximetry Systolic blood pressure Diastolic blood pressure Provider Name and Address Organization Details Last Updated DateTime 3 160.02 cm 97.6 [degF] 35.6 kg/m2 29004.0 7 g 91 /min 98 % 98 % 116 mm[Hg] 70 mm[Hg] My Kaur RN [facility] 9+ 3 12:04:18 Date Recorded Body height Body temperature Body mass index (BMI) Body weight Respiratory rate Oxygen saturation Oxygen saturation in Arterial blood by Pulse oximetry Heart rate Provider Name and Address Organization Details Last Updated DateTime 3 160.02 cm 98.1 [degF] 33.3 kg/m2 38352.3 7 g 16 /min 98 % 98 % 86 /min LOVE Blake [facility] 3 14:04:35 Social History Question Answer Notes LastModified by Organizat ion Details LastModified Time Tobacco Smoking Status Never Smoker Not Available [facility] 12/24/2022 08:05:48 What Is Your Level Of Alcohol Consumption? Occasional [id number] Information not available 12/24/2022 What Is Your Level Of Caffeine Consumption? Moderate MIGRATION.[id number] Information not available 12/24/2022 How Much Tobacco Do You Chew? None MIGRATION.390057 3683 Information not available 12/24/2022 In The 14 Days Before Symptom Onset, Have You Had Close Contact With A Laboratory-confir med COVID-19 While That Case Was Ill? No MIGRATION.[id number] 1062 Information not available 12/24/2022 In The 14 Days Before Symptom Onset, Have You Had Close Contact With A Person Who Is Under Investigation For COVID-19 While That Person Was Ill? No MIGRATION.830187 3019 Information not available 12/24/2022 Are You Currently Employed? Yes [email or web address] Information not available 06/30/2023 What Type Of Diet Are You Following? REGULAR MIGRATION.461293 9937 Information not available 12/24/2022 Which Illicit Or Recreational Drugs Have You Used? None MIGRATION.441681 3714 Information not available 12/24/2022 Do You Or Have You Ever Used E-cigarettes Or Vape? 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 No MIGRATION.853772 3271 Information not available 12/24/2022 Do You Use Insect Repellent Routinely? No MIGRATION.751798 2885 Information not available 12/24/2022 What Is Your Relationship Status? Single MIGRATION.774143 8685 Information not available 12/24/2022 Do You Use Your Seat Belt Or Car Seat Routinely? Yes MIGRATION.696139 0234 Information not available 12/24/2022 Do You Have Smoke And Carbon Monoxide Detectors In Your Home? Yes MIGRATION.075399 8416 Information not available 12/24/2022 Do You Or Have You Ever Used Smokeless Tobacco? Never Used Smokeless Tobacco MIGRATION.893155 2891 Information not available 12/24/2022 How Much Tobacco Do You Smoke? No MIGRATION.384657 2512 Information not available 12/24/2022 Do You Use Any Illicit Or Recreational Drugs? No MIGRATION.063233 8120 Information not available 12/24/2022 Do You Use Sunscreen Routinely? Yes MIGRATION.451695 6859 Information not available 12/24/2022 Have You Recently Traveled Abroad? No MIGRATION.473484 6729 Information not available 12/24/2022 Do You Have Any Dietary Restrictions? No MIGRATION.106535 4987 Information not available 12/24/2022 Do You Or Have You Ever Used Any Other Forms Of Tobacco Or Nicotine? No MIGRATION.718507 2459 Information not available 12/24/2022 Sex: Unknown Functional Status Question Answer Note LastModified by Organizat ion Details LastModified Time What is your exercise level? Occasional [id number] Information not available 12/24/2022 Mental Status None recorded. Family History Relationship Description Onset Age of this Age Resolved Age Notes LastModified by Organization Details LastModified Time Mother Osteopenia Not avail able 07/01/2023 13:59:27 Father Hypertensive disorder MIGRATION.[id number] Not available 12/24/2022 08:05:53 Maternal Grandfather Dementia [email or web address] Not available 13:59:27 Maternal Grandfather Heart disease MIGRATION.275 [id number] Not available 12/24/2022 08:05:53 Paternal Grandfather Heart disease MIGRATION.436 [id number] Not available 12/24/2022 08:05:53 Paternal Grandfather Bipolar disorder [email or web address] Not available 07/01 13:59:27 Sister Anxiety disorder MIGRATION.496 [id number] Not available 12/24/2022 08:05:53 Sister Depressive disorder MIGRATION.594 [id number] Not available 12/24/2022 08:05:53 Medical History Condition Response ANXIETY DISORDER Y BACK / NECK PROBLEMS Y DEPRESSION (INCLUDING POST ) Y HEARTBURN / REFLUX Y Gynecological History Statement/Question Response Date of Last Colonoscopy Most Recent Bone Density Date of LMP 02/18/2021 Sexually Active? Y Menses Monthly N Date of Last Pap 02/15/2018 Date of Last Pap Smear 02/15/2018 Age at Menarche 11 Current Control Method BCPs Breast Problems no Obstetrics History GPAL:G 0 P 0 0 0 0 Immunizations Vaccine Type Date Status Note Provider Nam e and Address Organization Details Recorded Time COVID-19, mRNA, LNP-S, PF, 30 mcg/0.3 mL dose 12/28/2020 completed Not Available [facility] 03/01/202 3 08:13:20 COVID-19, mRNA, LNP-S, PF, 30 mcg/0.3 mL dose 11/29/2020 completed Not Available [facility] 3 08:13:20 Influenza, split virus, quadrivalent, PF 09/02/2021 completed Not Available [facility] 3 08:13:20 Past Encounters Encounter ID Performer Location Encounter Start Date Encounter Closed Date Diagnosis/Indication Diagnosis SNOMED-CT Code Diagnosis ICD10 Code Diagnosis Note [id number] [facility] [place] [address] [place] [address] 02/28/2021 00:00:00 03/21/2021 01:35:29 [id number] _IRVINENA_M IGRATION_ DEFAULT_1 _1 , 02/28/2021 00:00:00 02/28/2021 10:56:57 [id number] [facility] [place] [address] [place] [address] 09/02/2021 00:00:00 09/15/2021 11:05:10 [id number] [facility] [place] [address] [place] [address] 03/03/2022 00:00:00 03/25/2022 20:56:22 [id number] [facility] [place] [address] [place] [address] 05/16/2022 00:00:00 05/24/2022 17:14:39 [id number] [facility] [place] [address] [place] [address] 09/26/2022 00:00:00 10/24/2022 16:37:05 [id number] JAYDEN Joyce [facility] [place] [address] [place] [address] 04/02/2023 11:59:01 04/02/2023 12:34:00 Mixed anxiety and depressive disorder 389468757 F41.8 stable on wellbutrin XL 300mg daily and venlafaxin e ER 75mg daily. Gastroesop hageal reflux disease without esophagitis 055783881 K21.9 stable on omeprazole 20mg daily. Insomnia 982174341 G47.0 0 start trial of lorazepam 1mg qhs. she needs help primarily with shutting the brain down from thinking during this time, in order to rest. Subclinica l hypothyroidism 95407701 E02 stable labs in january on low dose thyroid supplement . Cholesterol screening 27 9850666 Z13.220 fasting lipids due. Diabetes m ellitus screening 936014135 Z13.1 screening for diabetes due. Long-term drug therapy 248293646 Z79.899 routine CBC and CMP due. [id number] JAYDEN Joyce [facility] [place] [address] [place] [address] 07/01/2023 13:59:04 07/01/2023 14:44:31 Pityriasis rosea 38592161 L42 pt may use some low dose steroid cream on lesions if she desires but self -limiting. Health Concerns Section Related Observation LastModified by Organization Detai ls LastModified Time None Recorded Concern Status LastModified by Organization Details LastModified Time None Recorded Advance Directives Directive None Recorded Payers Encounter Date Sequence Insurance Name Policy Number Policy [place] Covered Member ID [place] Member ID Guarantor Name 04/02/2023 1 [facility] - CHOICE PLUS [id number] Argelia L Wible [id number] Argelia L Wible 07/01/2023 1 [facility] - CHOICE PLUS [id number] Argelia L Wible [id number] Argelia L Wible Notes Date Note Type Note Provider Name and Address Organization Details Recorded Time 03/03/20 22 text/htm l Anxiety/DepressionReported bypatient.Quality:doesnt matter time of day. Severity:denies suicidal ideations; able to maintain relationships;interference with sleep Duration:symptoms lasting over 2 weeks Onset/Timing:still present Context:major life stressors Modifying Factors:medications as directed Associated Symptoms:denies homicidal ideations; no significant weight gain; no significant weight loss; no visual/auditory hallucinations; no delusions; no shortness of breath; mood good; no anxiety; no crying spells; no panic; no isolation; sleeping well; appetite good; energy good; no apathy; maintaining functionality Not Available [facility] 03/25/2022 20:56:22 05/16/20 text/htm l Generic HPI TemplateReported bypatient.Location:L axillary Quality:lump Severity:increased in size Duration:constant Onset/Timin months Context:unknown- but she had COVID at the end of february around when she found it. Aggravating factors:nothing. Not Available [facility] 05/24/2022 17:14:39 09/26/20 22 text/htm l Anxiety/DepressionReported bypatient.Severity:denies suicidal ideations; able to maintain relationships; does not interfere with activities of daily living Duration:symptoms lasting over 2 weeks Onset/Timing:still present Context:no major life stressors Modifying Factors:medications as directed Associated Symptoms:denies homicidal ideations; no significant weight gain; no significant weight loss; no visual/auditory hallucinations; no delusions; no shortness of breath; no crying spells; no panic; no isolation; sleeping well; appetite good; energy good; no apathy; maintaining functionality;anxiety;depressi on Not Available [facility] 10/24/2022 16:37:05 04/02/20 23 text/htm l Anxiety/DepressionReported bypatient.Severity:denies suicidal ideations; able to maintain relationships; does not interfere with activities of daily living Context:no major life stressors Associated Symptoms:denies homicidal ideations; no significant weight gain; no significant weight loss; no visual/auditory hallucinations; no delusions; no shortness of breathNotes:stables on medsHypothyroidismReported bypatient.Quality:improving Severity:mild Onset/Timing:better Context/Risk:female gender; subclinical hypothyroid Modifying Factors:medication Exercisegets exercise Associated Symptoms:no cold intolerance; no heat intoleranceReflux/GERDReported bypatient.Severity:improving Context:non-smoker; no drug/alcohol abuse; no drug alcohol withdrawal; not related to food/drink Alleviating Factors:medication Associated Symptoms:no frequent coughing; no feeling of fullness/mass in throat; no hoarseness; no food getting stuck; no belching/burping; no vomiting; not vomiting blood; no regurgitation; no shortness of breath; no chest pain; no heartburn; no difficulty swallowing; no pain when swallowing; no bad taste; no decreased appetite; no weight loss; no black/tarry stools; no fatigue; no throat pain 6 mo check up JAYDEN Joyce [address], [place], [address], [employer] [facility] 04/19/2023 22:36:19 07/01/20 23 text/htm l Rash/Skin LesionReported bypatient.Location:chest; back; arms Quality:not painful;itchy;dry;red;multiple Severity:worsening Duration:has noted for 3 weeks Onset/Timing:gradual onset Context:no new detergents or skin products; no one else with similar rash Alleviating Factors:nothing gives relief Aggravating Factors:nothing makes it worse Associated Symptoms:no fever; no cold symptoms; no nausea; no vomiting; no diarrhea; no urinary symptoms JAYDEN Joyce [address] [facility] [address], [place], [address], [employer] [facility] 07/22/2023 22:15:29 OBGyn Episode No OBEpisode recorded.
--- OUTSIDE RECORDS SUMMARY | 2025-02-13 17:45 | XMS_ITS | Data Portability ---
Author Organization [facility] Address [address] [place] [address] Care Team Providers Care Tip Fixer Name Role Phone RANDOLPH GO Primary Care Provider Unavailab le Assessment No assessment recorded. Plan of Treatment Reminders Order Date Submit Date Provider Last Modified By Organization Details Last Modified Time Details Appointments ANY 15 2024 01:30P M JAYDEN Joyce Not available Not available Not available Lab TSH + free T4, serum 2023 024 [facility], [address], [place], [address], 01/05/2025 11:38:40 TSH + free T4, serum 2023 024 [facility], [address], [place], [address], 05/31/2024 09:34:40 CMP, serum or plasma 2023 024 [facility], [address], [place], [address], 06/03/2024 13:02:59 CBC w/ auto diff 2023 024 [facility], [address], [place], [address], 06/03/2024 13:02:59 vitamin B12 + folate, serum or blood 2023 024 [facility], [address], [place], [address], 06/03/2024 13:03:00 lipid panel, serum 2023 024 [facility], [address], [place], [address], 06/03/2024 13:02:59 HbA1c (hemoglob in A1c), blood 2023 024 [facility], [address], [place], [address], 06/03/2024 13:02:59 Referral None recorded. Procedures None recorded. Surgeries None recorded. Imaging None recorded. Medication Orders bupropion HCl XL 150 mg 24 hr tablet, extended release 2023 [id number], [address], [place], [place], [id number], 10/11/2024 15:14:17 venlafaxi ne ER 37.5 mg capsule,e xtended release 24 hr 2023 [id number], [address], [place], [place], [id number], 10/11/2024 15:28:38 Patient TargetsNo targets recorded. Patient Instructions Encounter Date Encounter Id Patient Instructions Last Modified By Organization Details Last Modified Time 10/11/2024 [id number] A healthy lifestyle: care instructions [email or web address] Not available 10/11/2024 15:43:54 Reason for Referral None Reported. Results Created Date Observation Date Name Description Value Unit Range Abnormal Flag Note LastModifiedBy Organization Detail LastModifiedTime 01/27/2001/26/2025 US, obste tric, limit ed No observ ation record ed. [email or web address] [facility] [address] [facility] [address], [place], [address], 01/26/2025 11:56:42 01/31/20 25 01/30/2025 US, obste tric No observ ation record ed. [address], [place], [address], 01/30/2025 21:13:41 02/10/20 25 02/09/2025 imagi ng/di agnos tic resul t No observ ation record ed. [email or web address] [place], [place] [id number] [facility] [address], [place], [address], 02/09/2025 16:42:35 Result Notes None recorded. Problems Name Problem SNOMED Code Status Onset Date Resolution Date Notes Provider Name and Address Organization Details Recorded Time Gastroesophage al reflux disease 545300162 Active 2023 Mei Hilario [place], [place] - [facility] 4 08:15:33 Mixed anxiety and depressive disorder 842757354 Active 2023 Mei Hilario [place] [facility] 4 08:20:49 Body mass index 30+ - obesity 598372186 Active 2023 Justyna Muro MA null, [place] - [facility] 4 15:14:57 Hypothyroidism 75235540 Active 2023 JAYDEN Joyce Attn: Terri escudero,[address] [facility], [place], [address], [facility] 4 12:58:23 Obesity 311560312 Active 2023 JAYDEN Joyce Attn: Terri g,[address] [facility], [place], [address], [place] - [facility] 4 12:58:40 Problem Notes None recorded. Procedures Surgical History None recorded. Imaging Results Imaging Date Name Status LastModified by [facility] Details LastModified Time 01/26/2025 US, obstetric, limited completed [place] [id number] [facility] [address], [place], [address], 01/26/2025 11:56:42 01/30/2025 US, obstetric completed [email or web address] [facility] [address], [place], [address], 01/30/2025 21:13:41 02/09/2025 imaging/diagno stic result active [email or web address] [facility] [address], [place], [address], 02/09/2025 16:42:35 Procedure Notes None recorded. Medical Equipment None Reported. Allergies Allergen ID Allergen Name Allergen Category Reaction Reaction Severity Criticality Documentation Date Start Date Code Code System Note Provider Name and Address Organization Details Recorded Time 370084 amoxicill in medicatio n Not available Not available Not available 03/18/2024 723 RxNorm Not Available Not Available Not Available 455075 Cipro medicatio n Not available Not available Not available 03/18/2024 08710 3 RxNorm Not Available Not Available Not Available 929992 Substance with sulfonami de structure and antibacte rial mechanism of action (substanc e) medicatio n Not available Not available Not available 03/18/2024 32574 8003 SNOMED Not Available Not Available Not Available Medications Name Sig Start Date Stop Date Status Note LastModified by Organization Details LastModified Time venlafaxine ER 37.5 mg capsule,ext ended release 24 hr TAKE 1 CAPSULE BY MOUTH EVERY DAY 10/11 completed Not Available Not Available Not Available venlafaxine ER 75 mg capsule,ext ended release 24 hr TAKE 1 CAPSULE BY MOUTH EVERY DAY 03/18 completed Not Available Not Available Not Available Tamiflu 75 mg capsule Take 1 capsule twice a day by oral route for 5 days. 2024 active Not Available Not Available Not Avai lable triamcinolo ne acetonide 0.1 % topical cream APPLY THIN LAYER TOPICALLY TO THE AFFECTED AREA TWICE DAILY 03/18 completed Not Available Not Available Not Available levothyroxi ne 75 mcg tablet TAKE 1 TABLET BY MOUTH EVERY DAY active Not Available Not Available No t Available omeprazole 20 mg capsule,del ayed release TAKE 1 CAPSULE DAILY 10/11 completed Not Available Not Available Not Available Euthyrox 50 mcg tablet One tab p.o. daily 01/17 completed Not Available Not Available Not Available lorazepam 1 mg tablet TAKE 1 TABLET BY MOUTH EVERY NIGHT AT BEDTIME NEEDED 10/11 completed Not Available Not Available Not Available ondansetron 4 mg disintegrat ing tablet Place 1 tablet every day by oral route for 2 days. active Not Available Not Available No t Available bupropion HCl XL 300 mg 24 hr tablet, extended release Take 1 tablet every day by oral route. 10/11 completed Not Available Not Available Not Available bupropion HCl XL 150 mg 24 hr tablet, extended release TAKE 1 TABLET BY MOUTH EVERY DAY 10/11 completed Not Available Not Available Not Available escitalopra m 5 mg tablet TAKE 1 TABLET BY MOUTH EVERY DAY active Not Available Not Available No t Available Synthroid 10/11 completed Not Available Not Available Not Available Unisom SleepGels active Not Available Not Available No t Available Unasyn 10/11 completed Not Available Not Available Not Available Vitamin B6 active Not Available Not Av ailable Not Available clindamycin 1.2 % (1 % base)-benzo yl peroxide 5 % topical gel APPLY TO THE AFFECTED AREA TWICE DAILY active Not Available Not Available No t Available aspirin 81 mg capsule Take 1 capsule every day by oral route. active Not Available Not Available No t Available Vitals Date Recorded Body weight Body mass index (BMI) Body height Heart rate Oxygen saturation Oxygen saturation in Arterial blood by Pulse oximetry Provider Name and Address Organization Details Last Updated DateTime 4 81863.7 8 g 29.3 kg/m2 157.48 cm 106 /min 97 % 97 % Mei Hilario [facility] 08:20:12 Date Recorded Respiratory rate Systolic blood pressure Diastolic blood pressure Provider Name and Address Organization Details Last Updated DateTime 03/18/2024 16 /min 118 mm[Hg] 80 mm[Hg] JAYDEN Joyce Attn: [address] [place], [address], [facility] 03/18/2024 09:14:03 Date Recorded Body height Body mass index (BMI) Body weight Oxygen saturation Oxygen saturation in Arterial blood by Pulse oximetry Heart rate Systolic blood pressure Diastolic blood pressure Provider Name and Address Organization Details Last Updated DateTime 4 157.48 cm 35.1 kg/m2 44565.7 4 g 98 % 98 % 82 /min 112 mm[Hg] 82 mm[Hg] Justyna Muro MA [facility] 15:16:31 Date Recorded Systolic blood pressure Diastolic blood pressure Provider Name and Address Organization Details Last Updated DateTime 10/11/2024 120 mm[Hg] 80 mm[Hg] JAYDEN Joyce Attn: Accounting,[address] [facility], [place], [address], [facility] 10/11/2024 15:44:28 Social History Question Answer Notes LastModified by Organizat ion Details LastModified Time Tobacco Smoking Status Never Smoker Mei Hilario jamie, [facility] 03/18/2024 08:21:28 Do You Have An Advance Directive? No [email or web address] Information n ot available 03/18/2024 What Is Your Level Of Alcohol Consumption? Occasional [email or web address] Information not available 03/18/2024 Are You Blind Or Do You Have Difficulty Seeing? No [email or web address] Information n ot available 03/18/2024 What Is Your Level Of Caffeine Consumption? Moderate [email or web address] Information not available 03/18/2024 In The 14 Days Before Symptom Onset, Have You Had Close Contact With A Laboratory-confirm ed COVID-19 While That Case Was Ill? No [email or web address] Information n ot available 03/18/2024 In The 14 Days Before Symptom Onset, Have You Had Close Contact With A Person Who Is Under Investigation For COVID-19 While That Person Was Ill? No [email or web address] Information not available 03/18/2024 Have You Been To An Area Known To Be High Risk For COVID-19? No [email or web address] Information not available 03/18/2024 Are You Currently Employed? Yes [email or web address] Information not available 03/18/2024 Are You Deaf Or Do You Have Serious Difficulty Hearing? No [email or web address] Information not available 03/18/2024 What Type Of Diet Are You Following? REGULAR [email or web address] Information n ot available 03/18/2024 Are There Any Guns Present In Your Home? Yes [email or web address] Information not available 03/18/2024 What Was The Date Of Your Most Recent Tobacco Screening? 10/11/2024 Information not available 10/11/2024 What Is Your Relationship Status? [email or web address] Information not available 03/18/2024 Do You Use Your Seat Belt Or Car Seat Routinely? Yes [email or web address] Information not available 03/18/2024 Do You Have Smoke And Carbon Monoxide Detectors In Your Home? Yes [email or web address] Information not available 03/18/2024 Do You Use Any Illicit Or Recreational Drugs? No [email or web address] Information not available 03/18/2024 Do You Use Sunscreen Routinely? Yes [email or web address] Information not available 03/18/2024 Has Tobacco Cessation Counseling Been Provided? No Information not available 10/11/2024 Do You Or Have You Ever Used Any Other Forms Of Tobacco Or Nicotine? No [email or web address] Information not available 03/18/2024 Sex: Unknown Functional Status Question Answer Note LastModified by Organizat ion Details LastModified Time Are you able to care for yourself? Yes Information not available 03/18/2024 What is your exercise level? Occasional [email or web address] Information not available 03/18/2024 Mental Status None recorded. Family History Relationship Description Onset Age of this Age Resolved Age Notes LastModified by Organization Details LastModified Time Father Hyperlipidem ia Not available 03/18 08:21:07 Father Hypertensive disorder [email or web address] Not available 2023 08:59:28 Mother Hyperlipidem ia [email or web address] Not available 03/18 08:21:07 Mother Hypertensive disorder [email or web address] Not available 2023 08:59:28 Sister Attention deficit hyperactivit y disorder [email or web address] Not available 03/18 08:59:37 Medical History Condition Response Depression Y Anxiety Disorder Y Allergies Y Gynecological History Statement/Question Response Menses Monthly N Current Control Method Obstetrics History GPAL:G 1 P 0 0 0 1 Type Value Living 1 Total 1 Past Encounters Encounter ID Performer Location Encounter Start Date Encounter Closed Date Diagnosis/Indication Diagnosis SNOMED-CT Code Diagnosis ICD10 Code Diagnosis Note [id number] JAYDEN Joyce [facility] [address] [place] [address] 03/18/2024 08:12:53 03/18/2024 09:10:26 Adult health examination 904662787 Z00.01 wellness exam completed. Mixed anxi ety and depressive disorder 003102678 F41.8 pt plans to try and conceive later summer. start taper down off medication s as follows: decrease to wellbutrin XL 150mg daily and venlafaxin e ER 37.5mg daily. pt will take this one month then start every other day dosing x 1 month, then d/c. during the last few weeks of qod dosing, she will start lexapro therapy. she will portal in 1month to update on how she is doing with taper. Gastroesop hageal reflux disease 451261788 K21.9 stable on PPI therapy for now. she should confirm with her OB that PPI use is approved by them, or if famotidine is needed. Body mass index 25-29 - overweight 822746661 Z68.29 pt has lost about 40 pounds on semaglutid e compound online purchase. Long-term drug therapy 504290920 Z79.899 annual routine labs ordered Cholesterol screening 27 5073677 Z13.220 Diabetes m ellitus screening 234115573 Z13.1 Thyroid di sorder screening 010609433 Z13.29 [id number] JAYDEN Joyce [facility] [place] [address] [place] [address] 10/11/2024 14:44:11 10/27/2024 09:03:37 Body mass index 30+ - obesity 721640210 Z68.35 BMI is currently 35.1 and she is Obesity 654102169 E66.9 Mixed anxi ety and depressive disorder 597115138 F41.8 Stable on Lexapro 5 mg daily. She is doing very well and pleased. Gastroesop hageal reflux disease 810452942 K21.9 Acid reflux is currently stable at this time with no acute concerns Hypothyroidism 48820433 E03.9 Continue you thyroxine 50 mcg daily and check an updated thyroid function panel we want to assure that thyroid level stay appropriat e during 43028647 Z33.1 Health Concerns Section Related Observation LastModified by Organization Detai ls LastModified Time None Recorded Concern Status LastModified by Organization Details LastModified Time None Recorded Advance Directives Directive N: Payers Encounter Date Sequence Insurance Name Policy Number Policy [place] Covered Member ID [place] Member ID Guarantor Name 03/18/2024 1 [facility] [id number] Argelia Wible [id number] Argelia Wible 10/11/2024 1 [facility] [id number] Argelia Wible [id number] Argelia Wible Notes Date Note Type Note Provider Name and Address Organization Details Recorded Time 03/18/2024 text/html Anxiety/Depressi on Reported bypatient.Severity :denies suicidal ideations; able to maintain relationships; does not interfere with activities of daily living Duration:symptoms lasting over 2 weeks Onset/Timing:still present Context:no major life stressors Modifying Factors:medication s as directed Associated Symptoms:denies homicidal ideations; no significant weight gain; no significant weight loss; no visual/auditory hallucinations; no delusions; no shortness of breath; mood good; no anxiety; no crying spells; no panic; no isolation; sleeping well; appetite good; energy good; no apathy; maintaining functionalityReflu x/GERDReported bypatient.Symptoms Asymptomatic; no difficulty swallowing; no pain swallowing; no postprandial pain Severity:same Duration:present 5 or more years Onset/Timing:gone now Context:non-smoker ; no drug/alcohol abuse; no drug alcohol withdrawal; not related to food/drink Alleviating Factors:medication Associated Symptoms:no frequent coughing; no feeling of fullness/mass in throat; no hoarseness; no food getting stuck; no belching/burping; no nausea; no vomiting; not vomiting blood; no regurgitation; no shortness of breath; no chest pain; no heartburn; no difficulty swallowing; no pain when swallowing; no bad taste; no decreased appetite; no weight loss; no black/tarry stools; no fatigue; no throat pain JAYDEN Joyce Attn: [employer] [place], [address], [facility] 03/18/2024 09:16:59 10/11/2024 text/html Anxiety/Depressi on Reported bypatient.Severity :denies suicidal ideations; able to maintain relationships; does not interfere with activities of daily living Duration:symptoms lasting over 2 weeks Onset/Timing:still present Context:no major life stressors Modifying Factors:medication s as directed Associated Symptoms:denies homicidal ideations; no significant weight gain; no significant weight loss; no visual/auditory hallucinations; no delusions; no shortness of breath; mood good; no anxiety; no crying spells; no panic; no isolation; sleeping well; appetite good; energy good; no apathy; maintaining functionalityNotes :Patient is now on Lexapro 5 mg daily for her anxiety depression management. She is actually doing very well on this medication during .Reflux/G ERDReported bypatient.Symptoms Asymptomatic; no difficulty swallowing; no pain swallowing; no postprandial pain Severity:same Duration:present 5 or more years Onset/Timing:gone now Context:non-smoker ; no drug/alcohol abuse; no drug alcohol withdrawal; not related to food/drink Alleviating Factors:medication Associated Symptoms:no frequent coughing; no feeling of fullness/mass in throat; no hoarseness; no food getting stuck; no belching/burping; no nausea; no vomiting; not vomiting blood; no regurgitation; no shortness of breath; no chest pain; no heartburn; no difficulty swallowing; no pain when swallowing; no bad taste; no decreased appetite; no weight loss; no black/tarry stools; no fatigue; no throat painNotes:Patient is taking szsl-[id number]-[id number] Tums as needed during JAYDEN Joyce Attn: Account[address] [place], [address], [facility] 10/25/2024 12:59:54 OBGyn Episode No OBEpisode recorded.
--- OUTSIDE RECORDS SUMMARY | 2025-02-13 17:45 | XMS_ITS | Patient Health Record ---
Author Organization [facility] [place] ([address]) Address [address] [place] [address] Care Team Providers Care Membership Correspondent Name Role Phone Nelly Ferguson Primary Care Provider Unavailab le Jackeline Disla Unavailable [phone] [employer], Provider Unavailable Unavailab le Allergies Allergen (clinical drug ingredient) Drug/Non Drug Allergy documented on EMR Reaction Allergy Type Onset Date Status CEFZIL (uncoded) rash Allergy Act parminder sulfamethoxazole / trimethoprim Bactrim DS wheezing Drug Allergy Active Ciprofloxacin rash Drug Allergy Act parminder Levaquin rash Drug Allergy Active methylprednisolone methylPREDNISolone rash Drug Allergy Active Penicillin hives Drug Allergy Active Reason For Referral No Information Medications Medication SIG (Take, Route, Frequency, Duration) Notes Start Date End Date Status Xyzal Allergy 24HR 5 MG 1 tablet PO daily for 30 Active Azelastine HCl 137 MCG/SPRAY 2 spray(s) intranasally 2 times a day for 30 day(s) Active Effexor XR 37.5 MG 1 cap(s) orally once a day Active buPROPion HCl ER (XL) 300 MG 1 tab(s) orally every 24 hours Active EPINEPHrine 0.3 MG INTRAMUSCULARLY ONCE *Please review and pick correct strength-formulat ion from Medispan options. If intended option is not shown, discontinue and re-order from Quick Search* Active ZyrTEC Allergy 10 MG 1 tab(s) orally onc e a day Active AZELASTINE HYDROCHLORIDE NASAL 137 mcg/inh 2 spray(s) intranasally 2 times a day for 30 day(s) Active XYZAL 5 mg 1 tablet PO daily fo r 30 Active BUPROPION 300 mg/24 hours 1 tab(s) orally every 24 hours Active EFFEXOR XR 37.5 mg 1 cap(s) orally once a day Active ZYRTEC 10 mg 1 tab(s) orally once a day Active EPINEPHRINE 0.3 mg intramuscularly once Active NASAL WASHES N/A DIRECTED INTRANASALLY NEEDED for 30 *Please review for potential replacement for e-prescription and drug interaction check* Active Immunizations Vaccine Route Administration Date Status Comme nts Influenza Unknown 07/14/2018 Refused Social History Tobacco Use: Social History Observation Description Date Details (start date - stop date) Never Smoker NA - NA Smoking Smart Form: Question Answer Notes Are you a: never smoker Problems Problem Type SNOMED Code ICD Code Onset Dates Problem Status W/U Status Risk Notes Problem Allergy status t o other antibiotic agents status (Z88.1) Active confirmed Problem Adverse effect o f sulfonamides, subsequent encounter (T37.0X5D) Active confirmed Problem Allergic rhinitis (09595145) Other allergic rhinitis (J30.89) Active confirmed Problem Chronic allergic conjunctivitis (13636486) Other chronic allergic conjunctivitis (H10.45) Active confirmed Problem Allergic contact dermatitis caused by plant material (disorder) (6833624481128914 1) Allergic contact dermatitis due to plants, except food (L23.7) Active confirmed Problem Allergy to penicillin (20620161) Allergy status to penicillin (Z88.0) Active confirmed Problem Sulfonamide adverse reaction (613896968) Adverse effect of sulfonamides, initial encounter (T37.0X5A) Active confirmed Problem Drug allergy (541784922) Allergy status to other drugs, medicaments and biological substances status (Z88.8) Active confirmed Encounters Encounter Location Date Provider Diagnosis [facility] [address] [place] [address] 04/09/2024 Provider Ileana Other allergic rhinitis J30.89 Assessments Encounter Date Diagnosis (ICD Code) Assessment Notes Treatment Notes Treatment Clinical Notes Section Notes 04/09/2024 Other allergic rhinitis (ICD-10 - J30.89) Plan Of Treatment No Information Insurance Providers Payer Name Payer Address Payer Phone Subscriber Number Group Number Insured Name Patient Relationship to Insured Coverage Start Date Coverage End Date [facility] [address] [address] [place] [address] [id number] Argelia Keys Self - patient is the insured Medical (General) History Medical History History ICD Code Anxiety disorder, unspecified F41.9 Surgical History Surgery Date(Month/Year) Ear tubes
--- OUTSIDE RECORDS SUMMARY | 2025-02-13 17:45 | XMS_ITS | Continuity of Care Document ---
[facility] Organization [facility] Address [address] [place] [address] Phone Care Team Providers Care Electronic Tech Name Role Phone Ayesha Fields DO Unavailable [...] Diagnoses Date Provider Providers Copied on Encounter [facility], [address], [place], [place], [id number], tel:[phone] [facility] No Information Diamond Hodge. [address] [place] [address], [address], [place], [place], [facility], . tel:[phone] [facility], [address], [place], [place], [address], tel:[phone] [facility] Internal Medicine No Information Diamond Hodge. [address], [address] [facility], [place], [place], [facility], . tel:[phone] [facility], [address], [place], [place], [address], tel:[phone] [facility] Internal Medicine No Information Yokasta Lama. [address] [place] [address], [facility], . tel:[phone] [facility] [employer], [address], [place], [place], [address], tel:[phone] [facility] Internal Medicine No Information Diamond Hodge. [address], [place] [address], [place], [place], [facility], . tel:[phone] [facility], [address], [place], [place], [address], [place] tel:[phone] [facility] Internal Medicine Anxiety Diamond Hodge. [address], [address], [facility], . tel:[phone] Referring Provider: Ayesha Alicia, [address] [facility], [place], [place], [facility]. tel:[phone] [facility], [address], [place], [place], [address], [place] tel:[phone] [facility] Internal Medicine No Information Diamond Hodge. [address], [address], [facility], . tel:[phone] [facility] [employer], [address], [place], [place], [address], tel:[phone] [facility] Internal Medicine No Information Yokasta Lama. [address] [place], [address], [place]. tel:[phone] [facility], [address], [place], [place], [address], [place] tel:[phone] [facility] Internal Medicine Body mass index (BMI) 29.0-29.9, adultPE (physical exam), annual Diamond Hodge. [address], [address], [place], [address], [place]. tel:[phone] Referring Provider: Ayesha Alicia, [address], [place], [address]. tel:[phone] Family History Family Member Type Diagnosis Age At Onset Father Problem (finding) stroke Mother Problem (finding) Family history unknown Payers Payer name Insurance type Covered republican ID Authorstephanie haile(s) [facility] [id number] Social History Type Description Quantity Date Captured [...]
[2025-02-13 17:47] LABS: Basophils Absolute Auto 0.1 K/mm3 (0.0-0.1); Basophils Percent Auto 0.4 % (0.2-1.2); Eosinophils Absolute Auto 0.1 K/mm3 (0-0.3); Eosinophils Percent Auto 0.9 % (0-4.4); Hemoglobin 11.1 g/dL (12.0-15.0); Immature Granulocyte Absolute 0.12 K/mm3 (0.00-0.031); Immature Granulocyte Percent A 0.8 % (0-0.5); Lymphocytes Percent Auto 24.2 % (18.3-44.2); Mean Corpuscular HGB Conc 33.6 g/dl (32-36); Mean Corpuscular Hemoglobin 29.4 pg (26-34); Mean Corpuscular Volume 87.3 fl (80-100); Mean Platelet Volume 11.2 fl (7.4-10.4); Monocytes Absolute Auto 0.9 K/mm3 (0.1-0.6); Monocytes Percent Auto 5.9 % (2.6-8.5); Neutrophils Absolute Auto 10.1 K/mm3 (1.3-6.7); Neutrophils Percent Auto 67.8 % (45.5-73.1); Platelet Count Result 284 k/mm3 (150-375); Red Blood Count 3.78 M/mm3 (4.2-5.4); Red Cell Distribution Width 14.1 % (11.5-14.5); White Blood Count 14.9 K/mm3 (4.5-10.0)
[2025-02-13] MEDS: DINOPROSTONE 10 MG VAG INSERT VAGINAL (18:17)
[2025-02-13 18:26] LABS: Syphilis IgG/IgM Antibody Negative (Negative)
[2025-02-13 18:39] LABS: HIV 1/2 Ab P24 Ag Result Negative (Negative)
--- NOTE | 2025-02-13 20:40 | WPDANESEPP ---
Anes - Eval Pre Procedure Procedure: Labor epidural Date/Time: 02/13/25 20:40 Surgeon: Franck Preop Diagnosis: Abdominal pain with contractions Pre Op Diagnosis: IOL Patient Data Age: 34 Gender: F Height: 1.6 m Weight: 94 kg Last Vital Signs Temp 97.1 F L 02/13/25 18:00 Pulse 77 02/13/25 20:30 BP 135/88 02/13/25 20:30 O2 Del Method Room Air 02/13/25 17:23 Allergies Allergy/AdvReac Type Severity Reaction Status Date / Time sulfamethoxazole Allergy Severe Anaphylactic Verified 02/13/25 17:31 Shock trimethoprim Allergy Severe Anaphylactic Verified 02/13/25 17:31 Shock Sulfa (Sulfonamide Allergy Intermediate Anaphylaxis Verified 02/13/25 17:31 Antibiotics) prednisone Allergy Mild rash Verified 02/13/25 17:31 amoxicillin Allergy Unknown Rash Verified 02/13/25 17:31 cefprozil Allergy Unknown Rash Verified 02/13/25 17:31 levofloxacin Allergy Unknown Rash Verified 02/13/25 17:31 Home Medications ?Medication ?Instructions ?Recorded ?Confirmed ?Type escitalopram oxalate 5 mg tablet 5 mg PO DAILY 07/21/24 02/13/25 History ondansetron 4 mg disintegrating 4 mg PO Q6H PRN nausea and 07/21/24 02/07/25 Rx tablet vomiting #30 tabs docosahexaenoic acid 200 mg 200 mg PO DAILY 08/17/24 02/13/25 History capsule ( DHA) doxylamine succinate 25 mg tablet 25 mg PO QHS PRN sleep 08/17/24 02/13/25 History (Unisom (doxylamine)) pyridoxine (vitamin B6) 10 mg 10 mg PO Q12H 08/17/24 02/13/25 History tablet aspirin 81 mg tablet,delayed 81 mg PO DAILY 10/11/24 02/13/25 History release (Adult Low Dose Aspirin) calcium carbonate (Tums) 200 mg PO BID PRN heartburn 11/09/24 02/13/25 History levothyroxine 75 mcg tablet 75 mcg PO DAILY 01/18/25 02/13/25 History (Synthroid) Laboratory Tests 02/13/25 17:37 WBC 14.9 H K/mm3 (4.5-10.0) RBC 3.78 L M/mm3 (4.2-5.4) Hgb 11.1 L g/dL (12.0-15.0) Hct 33.0 L % (37.0-47.0) MCV 87.3 fl (80-100) MCH 29.4 pg (26-34) MCHC 33.6 g/dl (32-36) RDW 14.1 % (11.5-14.5) Plt Count 284 k/mm3 (150-375) MPV 11.2 H fl (7.4-10.4) Immature Gran % (Auto) 0.8 H % (0-0.5) Neut % (Auto) 67.8 % (45.5-73.1) Lymph % (Auto) 24.2 % (18.3-44.2) Edgar % (Auto) 5.9 % (2.6-8.5) Eos % (Auto) 0.9 % (0-4.4) Baso % (Auto) 0.4 % (0.2-1.2) Lymph # (Auto) 3.60 H K/mm3 (0.9-3.2) Edgar # (Auto) 0.9 H K/mm3 (0.1-0.6) Eos # (Auto) 0.1 K/mm3 (0-0.3) Baso # (Auto) 0.1 K/mm3 (0.0-0.1) Abs Immat Gran (auto) 0.12 H K/mm3 (0.00-0.031) Absolute Neuts (auto) 10.1 H K/mm3 (1.3-6.7) Absolute Nucleated RBC 0.000 K/mm3 (0.0-0.012) Nucleated RBC % 0.0 % (0.0-0.2) Syphilis IgG/IgM Ab Negative (Negative) HIV 1&2 Ab/P24 Ag 4thGn Negative (Negative) Blood Type O Positive Antibody Screen Negative : gestational age HCG: positive Patient hx anesthesia problems: none Family hx anesthesia problems: none Results Review: All pre-operative results and documents have been reviewed as part of the pre-operative evaluation. [facility] Past Medical History Medical History and not yet delivered Pre-eclampsia HPV (human papilloma virus) anogenital infection Heartburn Depression Anxiety Family History Family History Father Cerebrovascular accident Family history of coronary artery disease Family history of malignant melanoma Hypertension Mother Diabetes mellitus Grandparent No problems noted. Social History Social History Smoking status: Never smoker Second hand tobacco smoke exposure: No Alcohol intake: never Substance use: never Substance use type: does not use Do You Feel Safe in your Home?: Yes Lack of Transportation: No Lack of Food: Never True Current Housing: I Have Housing Concerned About Future Housing: No Difficulty Paying Gas/Electric Bills: No Difficulty Paying for Meds: No Currently Unemployed: No Education: Master's Degree or Higher Difficulty w/ Childcare or Family Care: No Living arrangements: with family Additional living arrangements comments: Occupation/Education: occupation Additional occupation/education comments: Teacher Gender identity (if verbalized by the patient): Female Sexual Orientation (if Verbalized by the Patient): Straight or Heterosexual Spiritual care concerns: No Exam Day of Procedure 02/13/25 20:40 Patient weight: obese
[2025-02-14] VITALS (267 sets, daily range): BP systolic 103–167; BP diastolic 56–109; PULSE 73–136; TEMP 36.3–36.8; O2SAT 94–100
[2025-02-14] MEDS: OXYTOCIN 30 UNITS/NS 500 ML 30 UNITS/500 ML BAG 6 UNITS IV CONT (06:49)
[2025-02-14] MEDS: LACTATED RINGERS 1,000 ML 125 ML IV CONT ×5 (06:53→20:04)
--- NOTE | 2025-02-14 07:33 | P.HP_ITS ---
H&P: HPI History of Present Illness Date/Time: 02/14/25 07:30 Chief Complaint: induction of labor Narrative: Argelia is a 34yo @ 37.1wks who presented for medical IOL due to pre- eclampsia. She has been undergoing ANT. She has had regular care. She reports good movement. No VB or LOF. Her is complicated by: - AMA; asa 81mg, MFM genetics/US - Anxiety on lexapro - Varicella, CMV non-immune - Pre-eclampsia w/o severe features; 24hr urine protein 888g, twice weekly ANT Review of Systems Constitutional: Constitutional: Denies chills, Denies fever(s) and Denies headache(s) Eyes: Eyes: Denies change in vision ENT: Denies headache(s) Cardiovascular: Cardiovascular: Denies chest pain and Denies dyspnea Respiratory: Respiratory: Denies dyspnea Genitourinary: Genitourinary: Denies abnormal vaginal bleeding and Denies vaginal discharge Neurologic: Denies headache(s) Psychiatric: Psychiatric: Denies anxiety and Denies depression [facility] Past Medical History Medical History and not yet delivered Pre-eclampsia HPV (human papilloma virus) anogenital infection Heartburn Depression Anxiety Family History Family History Father Cerebrovascular accident Family history of coronary artery disease Family history of malignant melanoma Hypertension Mother Diabetes mellitus Grandparent No problems noted. Social History Social History Smoking status: Never smoker Second hand tobacco smoke exposure: No Alcohol intake: never Substance use: never Substance use type: does not use Do You Feel Safe in your Home?: Yes Lack of Transportation: No Lack of Food: Never True Current Housing: I Have Housing Concerned About Future Housing: No Difficulty Paying Gas/Electric Bills: No Difficulty Paying for Meds: No Currently Unemployed: No Education: Master's Degree or Higher Difficulty w/ Childcare or Family Care: No Living arrangements: with family Additional living arrangements comments: Occupation/Education: occupation Additional occupation/education comments: Teacher Gender identity (if verbalized by the patient): Female Sexual Orientation (if Verbalized by the Patient): Straight or Heterosexual Spiritual care concerns: No Meds Home Medications and Allergies Home Medications ?Medication ?Instructions ?Recorded ?Confirmed ?Type escitalopram oxalate 5 mg tablet 5 mg PO DAILY 07/21/24 02/13/25 History ondansetron 4 mg disintegrating 4 mg PO Q6H PRN nausea and 07/21/24 02/07/25 Rx tablet vomiting #30 tabs docosahexaenoic acid 200 mg 200 mg PO DAILY 08/17/24 02/13/25 History capsule ( DHA) doxylamine succinate 25 mg tablet 25 mg PO QHS PRN sleep 08/17/24 02/13/25 History (Unisom (doxylamine)) pyridoxine (vitamin B6) 10 mg 10 mg PO Q12H 08/17/24 02/13/25 History tablet aspirin 81 mg tablet,delayed 81 mg PO DAILY 10/11/24 02/13/25 History release (Adult Low Dose Aspirin) calcium carbonate (Tums) 200 mg PO BID PRN heartburn 11/09/24 02/13/25 History levothyroxine 75 mcg tablet 75 mcg PO DAILY 01/18/25 02/13/25 History (Synthroid) Allergies Allergy/AdvReac Type Severity Reaction Status Date / Time sulfamethoxazole Allergy Severe Anaphylactic Verified 02/13/25 17:31 Shock trimethoprim Allergy Severe Anaphylactic Verified 02/13/25 17:31 Shock Sulfa (Sulfonamide Allergy Intermediate Anaphylaxis Verified 02/13/25 17:31 Antibiotics) prednisone Allergy Mild rash Verified 02/13/25 17:31 amoxicillin Allergy Unknown Rash Verified 02/13/25 17:31 cefprozil Allergy Unknown Rash Verified 02/13/25 17:31 levofloxacin Allergy Unknown Rash Verified 02/13/25 17:31 Exam Const: General: cooperative, no acute distress and obese Nutritional Appearance: obese Orientation/consciousness: patient oriented x3 Resp: Effort & Inspection: normal respiratory effort Cardio: Rate: regular rate GI: GI Palp: No abdominal tenderness : Other: FHT's: 130's/ mod jeffrey/ + accels/ no decels - cat 1 TOCO: ctxs q1-3min Cervix: 1.5/70/-2 Membranes: AROM, clear 0728 Presentation: cephalic Skin: General skin exam: normal color Neuro: General: patient oriented x3 Extrem: General: normal to inspection Psych: Appearance: grossly normal Affect: normal affect Attitude: cooperative Assessment and Plan Assessment and plan (1) Pre-eclampsia: Qualifiers: Trimester: third trimester Qualified Code(s): O14.93 - Unspecified pre- eclampsia, third trimester Code(s): O14.90 - Unspecified pre-eclampsia, unspecified trimester Status: Acute Plan - IOL @ 37wks due to pre-eclampsia w/o SF; asymptomatic, labs stable, BP in normal/moderate range - Cervidil overnight - AROM performed, low dose pitocin - continuous monitoring - GBS neg - Anesthesia consult PRN pain
--- NOTE | 2025-02-14 12:07 | PM.OBPNLAB ---
Pain Control Date/time seen: 02/14/25 12:07 Pain control: epidural Pelvic Exam Dilation (cm): 3 (.5) Effacement (%): 70 station: -2 Amniotic membrane status: Ruptured Contractions Monitor mode: Internal Contraction frequency: 2 (-4) Status status: Category l Assessment and Plan Pitocin rate (mU/min): 8 Plan: continuous present management
--- NOTE | 2025-02-14 16:55 | PM.OBPNLAB ---
Pain Control Date/time seen: 02/14/25 16:55 Pelvic Exam Dilation (cm): 4 (.5) Effacement (%): 80 station: -2 Amniotic membrane status: Ruptured Contractions Monitor mode: Internal Contraction frequency: 2 (-3) Status status: Category l Assessment and Plan Pitocin rate (mU/min): 18 Plan: continuous present management
[2025-02-14] MEDS: CALCIUM CARBONATE (TUMS) 500 MG (200 MG ELEMENTAL) PO (20:03)
[2025-02-15] VITALS (134 sets, daily range): BP systolic 61–176; BP diastolic 46–132; PULSE 73–138; RESP 16–171; TEMP 36.9–37.7; O2SAT 95–100
[2025-02-15] MEDS: VANCOMYCIN 2,000 MG/NS 500 ML 2,000 MG/500 ML BAG 250 MG IVPB ×2 (01:48→10:05)
[2025-02-15] MEDS: ONDANSETRON INJ 4 MG/2 ML VIAL IV PUSH (02:19)
--- NOTE | 2025-02-15 07:43 | PM.OBPNLAB ---
Pain Control Date/time seen: 02/15/25 07:43 Pain control: epidural Pelvic Exam Dilation (cm): 10 Effacement (%): 10 station: 0 Amniotic membrane status: Ruptured Contractions Monitor mode: Internal Contraction frequency: 2 (-3) Status status: Category l Assessment and Plan Pitocin rate (mU/min): 18 Comments: - She has been pushing for 1.5 hours - head in LOP; unable to rotate due to caput. We tried hands and knees - will continue to push for another 1-1.5 hours to see if head will rotate/descend - pt aware if no change in exam, will then proceed with primary . risks and benefits discussed in detail
--- NOTE | 2025-02-15 07:46 | WPDHPUPDATE1 ---
History and Physical Update Update Date/Time: 02/15/25 07:46 History and Physical has been reviewed, including an updated exam of the patient. There are NO changes in the patient's condition. Risks, benefits, and alternatives have been discussed and questions answered. Patient agrees to proceed with procedure.
--- NOTE | 2025-02-15 10:18 | W.PM.OBCSD ---
OB - Delivery Note Procedure Delivery date: 02/15/25 Pre-op diagnosis: Arrest of Decent, Non-Reassuring Status, Preeclampsia w/o severe features and Other (prolonged rupture of membranes) Post-op Diagnosis: Same Induction method: Per Cervidil Protocol Delivery augmentation: Rupture of Membranes and Pitocin Delivery monitor: External FHT and Internal Uterine Prior to decision for section, ACOG/[facility] labor guidelines were considered and discussed with the patient and staff. Decision made to proceed with the section.: Yes Procedure Performed: Primary Primary branch: low cervical, transverse Surgeon: Jacquelin Juárez MD Anesthesia type: Epidural Description of Procedure/Findings: Male , clear fluid, direct OP, nuchal cord x1. normal uterus, ovaries and fallopian tubes. 1cm bilateral extensions of the hysterotomy inferiorly was noted and repaired. surgicel powder used at end of case but good hemostasis noted. Specimen: Yes Estimated Blood Loss: 340 Pathology: Yes (placenta) Complications: No immediate complications Condition: Stable Disposition: Floor [place] Baby Date of : 02/15/25 Time of : 09:22 Gestational Age by Date: 37 (.2) gender: Male Weight (pounds): 7 Weight (ounces): 1 presentation: vertex position: Left Occiput Posterior (/direct OP) Placenta delivery description: Expressed Cord Vessel Description: 3 Vessels, Nuchal Cord and Reduced score one minute: 7 score five minutes: 9 Narrative: She had been counseled on all risks and benefits in detail. While pushing severe decelerations were noted and she was emergently taken back to the operating room. Epidural was found to be adequate. She was then prepped and draped in the normal sterile fashion. She received Azithromycin 500mg and Gentamicin 5mg/kg and vancomycin 2000mg due to allergies and a time out was performed. A Pfannenstiel incision was made in the skin and carried down to the underlying fascia. The fascia was nicked on either side of the midline and the fascial incision was extended laterally and superiorly using curved Finch scissors. The fascia was then elevated using Jennifer clamps and the underlying rectus muscles were dissected off the fascia, superiorly and inferiorly. The rectus muscles were then in the midline and the peritoneum was entered bluntly. Once adequate exposure was obtained, a Mobius self retractor was placed within the abdomen. A bladder flap was created. A low transverse incision was made on the lower uterine segment and clear fluid was noted. The occiput was deep in the pelvic but was brought to the hysterotomy and the head was delivered after the suction was released. A nuchal cord was noted and reduced. The shoulders and body then followed without complications. The had spontaneous cry and the mouth and nose were bulb suctioned. The cord was clamped and cut and the was handed off to the awaiting pediatric nurse. A segment of the cord was collected for cord gases. The remaining cord blood was collected for typing. With pitocin infusing, the placenta delivered with gentle traction on the cord without complications. The uterus was then cleared out of all clots and debris using a clean, moist lap. The hysterotomy was then carefully examined and small bilateral extensions measuring approximately 1cm inferiorly were noted. The hysterotomy was repaired in a running, interlocking fashion using 0 Vicryl. A second layer imbricating suture was then made using 0 Vicryl. An addtional figure of eight using 2-0 Vicryl was placed on the left edge of the hysterotomy and it was then found to be hemostatic and good uterine tone was noted. The bilateral adnexa were examined and found to be normal. The pelvis was cleared of all clots and fluid. Surigcel powder was placed on the raw edges. The Mobius retractor was removed from the abdomen. The peritoneum, muscle, and fascia were examined and made hemostatic with bovie cautery. The fascia was then repaired using a 0 Vicryl suture in a running fashion. The subcutaneous tissue was then irrigated and made hemostatic with bovie cautery. The subcutaneous tissue was then reapproximated using 2-0 Vicryl. The skin was then closed using 4-0 Monocryl in a running subcuticular fashion. Sponge, lap, needle and instrument counts were correct at the end of the procedure x2. The patient tolerated the procedure well and was taken to recovery in a stable condition.
[2025-02-15] MEDS: LORATADINE 10 MG TABLET PO (10:57)
[2025-02-15] MEDS: KETOROLAC 30 MG/ML VIAL (*BKC) IV PUSH (11:20)
[2025-02-15] MEDS: GENTAMICIN SULFATE INJ 470 MG in DEXTROSE 5% 100 ML 100 MG IVPB (12:45)
[2025-02-15] MEDS: CLINDAMYCIN 900 MG/D5W 50 ML 900 MG/50 ML PIGGYBACK 50 MG IVPB (15:14)
--- NOTE | 2025-02-15 15:39 | PC.NURSE ---
[id number] CLC called to room to see if able to assist with feeding. Per Primary RN, baby had not had a feeding in life. CLC attempted to wake baby and see if he would show any feeding cues and breastfeed, baby was put to mother's left breast in cross cradle position, but baby did not show any feeding cues and would only suck a few times on a gloved finger. Primary RN to check glucose and call service captain. 1415 CLC to room to discuss with mother options for feedings now, mother would like to use the breast pump and see if she can pump enough for a feeding now, if not she is OK with giving a Similac bottle as she has samples of that formula at home. Mother set up with hospital breast pump, her personal pump is at home. Instructions given on cleaning, care, usage, that there should be no pain, pumping schedule for milk production, collection, and storage of human milk. Patient was assessed for correct placement, flange size, to pump for comfort and nipple stretching/stimulation for adequate milk production every 3 hours (8 times in 24 hours) 1-2 times at night if baby is not feeding at the breast. Parents are encouraged to record the pumping schedule on the feeding sheet.?Mother voiced understanding of the education shared along with mom/baby guide and the pump measurement, flange fit handout for additional resource information. Reported to the Primary RN.
--- NOTE | 2025-02-15 16:43 | NBADM ---
1500. Met with mom to review how to Pace bottle feed and gave demonstration on feeding and burping per parents request. took 22 ml of formula at this time. Mom and dad confirm understanding of Pace bottle feeding, and plan to call for assistance with latching for his next feeding. We also reviewed feeding cues at this time. Reported to the primary Rn.
[2025-02-15] MEDS: DEXTROSE 5%/0.45% SOD CHL 1,000 ML 125 ML IV CONT (17:32)
[2025-02-15] MEDS: KETOROLAC 15 MG/ML VIAL (*BKC) IV PUSH (17:32)
[2025-02-15] MEDS: SIMETHICONE 80 MG TAB.CHEW PO (17:33)
[2025-02-15] MEDS: ACETAMINOPHEN 325 MG TABLET 650 MG PO (17:33)
[2025-02-15] MEDS: DOCUSATE SODIUM 100 MG CAPSULE PO (17:33)
[2025-02-16] VITALS (7 sets, daily range): BP systolic 120–144; BP diastolic 72–84; PULSE 93–113; RESP 16–18; TEMP 36.3–37; O2SAT 98–100
[2025-02-16] MEDS: CLINDAMYCIN 900 MG/D5W 50 ML 900 MG/50 ML PIGGYBACK 50 MG IVPB ×2 (00:36→12:04)
[2025-02-16] MEDS: KETOROLAC 15 MG/ML VIAL (*BKC) IV PUSH ×2 (00:37→06:35)
[2025-02-16] MEDS: ACETAMINOPHEN 325 MG TABLET 650 MG PO ×5 (00:37→23:30)
[2025-02-16] MEDS: HYDROcodone/acetaminophen (*CRX) 5-325 MG TABLET 1 TAB PO (00:44)
[2025-02-16 05:05] LABS: Basophils Absolute Auto 0.1 K/mm3 (0.0-0.1); Basophils Percent Auto 0.4 % (0.2-1.2); Eosinophils Absolute Auto 0.2 K/mm3 (0-0.3); Eosinophils Percent Auto 0.7 % (0-4.4); Hematocrit 21.4 % (37.0-47.0); Immature Granulocyte Absolute 0.28 K/mm3 (0.00-0.031); Immature Granulocyte Percent A 1.2 % (0-0.5); Lymphocytes Absolute Auto 3.08 K/mm3 (0.9-3.2); Lymphocytes Percent Auto 12.7 % (18.3-44.2); Mean Corpuscular HGB Conc 32.7 g/dl (32-36); Mean Corpuscular Hemoglobin 29.3 pg (26-34); Mean Corpuscular Volume 89.5 fl (80-100); Mean Platelet Volume 11.2 fl (7.4-10.4); Monocytes Absolute Auto 1.5 K/mm3 (0.1-0.6); Monocytes Percent Auto 6.3 % (2.6-8.5); Neutrophils Absolute Auto 19.2 K/mm3 (1.3-6.7); Neutrophils Percent Auto 78.7 % (45.5-73.1); Platelet Count Result 231 k/mm3 (150-375); Red Blood Count 2.39 M/mm3 (4.2-5.4); Red Cell Distribution Width 14.4 % (11.5-14.5); White Blood Count 24.3 K/mm3 (4.5-10.0)
[2025-02-16 05:18] LABS: Alanine Aminotransferase 17 U/L (6-35); Albumin Level 2.7 g/dL (3.5-5.1); Alkaline Phosphatase 128 U/L (38-126); Anion Gap 7 mmol/L (4-12); Aspartate Amino Transferase 38 U/L (14-36); Bilirubin,Total 0.2 mg/dL (0.2-1.3); Blood Urea Nitrogen 7 mg/dL (7-17); Calcium 8.4 mg/dL (8.4-10.2); Carbon Dioxide 23 mmol/L (22-30); Chloride 107 mmol/L (98-107); Estimated CRCL calculation 86 ml/min; Estimated Glomerular Filt Rate > 60; Glucose 81 mg/dL (65-110); Potassium 3.9 mmol/L (3.4-5.0); Sodium 137 mmol/L (137-145)
[2025-02-16] MEDS: LEVOTHYROXINE SODIUM 75 MCG TABLET PO (06:35)
--- NOTE | 2025-02-16 07:14 | P.PNOB_ITS ---
OB - PN: Subj Subjective Date/time seen: 02/16/25 07:14 Narrative: POD#1 Argelia reports doing well today. Her bleeding is legal recovery specialist. Her pain is controlled. She is tolerating regular diet, voiding, and ambulating without issues. She has not passed gas yet. She denies any issues with her incision. She is breast feeding and supplementing. She would like her son circumcised, but he is not eating well today so we will hold off. OB - PN: Obj Data Labs 02/16/25 04:29 02/16/25 04:29 Labs: Laboratory Results - last 24 hr 02/16/25 04:29 WBC 24.3 H RBC 2.39 L Hgb 7.0 L Hct 21.4 L MCV 89.5 MCH 29.3 MCHC 32.7 RDW 14.4 Plt Count 231 MPV 11.2 H Immature Gran % (Auto) 1.2 H Neut % (Auto) 78.7 H Lymph % (Auto) 12.7 L [place] % (Auto) 6.3 Eos % (Auto) 0.7 Baso % (Auto) 0.4 Lymph # (Auto) 3.08 [place] # (Auto) 1.5 H Eos # (Auto) 0.2 Baso # (Auto) 0.1 Abs Immat Gran (auto) 0.28 H Absolute Neuts (auto) 19.2 H Absolute Nucleated RBC 0.000 Nucleated RBC % 0.0 Sodium 137 Potassium 3.9 Chloride 107 Carbon Dioxide 23 Anion Gap 7 BUN 7 Creatinine 0.86 Estim Creat Clear Calc 86 Estimated GFR > 60 Glucose 81 Calcium 8.4 Total Bilirubin 0.2 AST 38 H ALT 17 Alkaline Phosphatase 128 H Total Protein 5.0 L Albumin 2.7 L OB - PN A/P Assessment and Plan (1) S/P section: Code(s): Z98.891 - History of uterine scar from previous surgery Status: Acute (2) Chorioamnionitis: Code(s): O41.1290 - Chorioamnionitis, unspecified trimester, not applicable or unspecified Status: Acute (3) Anemia: Code(s): D64.9 - Anemia, unspecified Status: Acute Plan day: 1 Plan: routine care Comments: - PO pain meds - Regular diet - Ambulation and hydration encouraged - Continue putting baby to breast q2-3hr/supplementing - Will plan to do circumcision tomorrow - s/p antibiotics (vanc 2g x2, gent 5mg/kg x1, clinda 900 x3); afebrile, will trend CBC - Significant drop in H/H; will repeat CBC in 4 hours from draw this AM, and repeat tomorrow AM, lochia normal, asymptomatic, benign abdominal exam Time Spent With Patient Time: Total time spent is greater than 50% in coordination of care (as documented) at patient's floor/unit and/or counseling patient: Review of Systems 2 Constitutional: Constitutional: Denies chills, Denies fever(s) and Denies headache(s) Eyes: Eyes: Denies change in vision ENT: Denies dizziness and Denies headache(s) Cardiovascular: Cardiovascular: Denies chest pain, Denies palpitations and Denies dyspnea Respiratory: Respiratory: Denies cough and Denies dyspnea Gastrointestinal: Gastrointestinal: Denies nausea and Denies vomiting Genitourinary: Comments: normal bleeding Neurologic: Denies dizziness and Denies headache(s) Endocrine: Endocrine: Denies palpitations Exam 2 Const: General: cooperative, comfortable, no acute distress and obese O rientation/consciousness: patient oriented x3 Resp: Effort & Inspection: normal respiratory effort Auscultation: clear to auscultation bilaterally Cardio: Rate: regular rate GI: Inspection: non-distended and incision (covered with clean dressing) GI Palp: Yes abdominal tenderness (appropriate) and Yes Soft to palpation A uscultation: normal bowel sounds : Other: fundus firm Skin: General skin exam: normal color Neuro: General: patient oriented x3 Extrem: General: normal to inspection Psych: Appearance: grossly normal Affect: normal affect Attitude: c ooperative
[2025-02-16] MEDS: IRON SUCROSE COMPLEX 400 MG, IRON SUCROSE COMPLEX 100 MG in SODIUM CHLORIDE 0.9% IV 250 ML 78.57 MG IVPB (07:51)
--- NOTE | 2025-02-16 09:12 | WPDANLDPN2 ---
Anes-Prog Note L&D Date/Time: 02/16/25 09:12 Comfortable throughout: labor and section Neuraxial method: epidural Epidural/Spinal procedure site: clean & non-tender Neuro status: Neuro function grossly intact. Cardiovascular status: normal Respiratory status: normal Airway patency: baseline Mental status: baseline Post-Op hydration status: normal Vital Signs: Last Vital Signs Temp 36.6 C 02/16/25 04:30 Pulse 93 02/16/25 04:30 Resp 16 02/16/25 04:30 BP 124/72 02/16/25 04:30 Pulse Ox 98 02/16/25 04:30 O2 Del Method Room Air 02/15/25 20:35 Pain score (VAS): 2/10 I/O: Intake & Output 02/15/25 02/16/25 02/16/25 23:59 07:59 15:59 Intake Total 50 800 Output Total 1450 Balance 50 -650 Post-procedural complaints: none Patient feedback: Patient satisfied with anesthetic care.
--- NOTE | 2025-02-16 09:13 | WPDANLDNPN2 ---
Anes-Prog Note L&D-Neuraxial Date/Time: 02/16/25 09:13 Neuraxial medications: epidural PF morphine Opiod-related complaints: none Patient feedback: Patient satisfied with post-operative pain management.
[2025-02-16 09:26] LABS: Hematocrit 30.7 % (37.0-47.0); Mean Corpuscular HGB Conc 32.6 g/dl (32-36); Mean Corpuscular Hemoglobin 29.2 pg (26-34); Mean Corpuscular Volume 89.8 fl (80-100); Mean Platelet Volume 10.7 fl (7.4-10.4); Platelet Count Result 210 k/mm3 (150-375); Red Blood Count 3.42 M/mm3 (4.2-5.4); Red Cell Distribution Width 14.5 % (11.5-14.5); White Blood Count 23.1 K/mm3 (4.5-10.0)
--- NOTE | 2025-02-16 10:25 | PC.NURSE ---
0700 Mother had called out for assistance latching baby. Discussed with mother her successes, concerns and any questions she has. Per mother last night baby had a few attempts at the breast and then one good feeding while in the football position, the primary RN last night also gave her a nipple shield to try. Mother was already set up with a breast pump yesterday but did not pump during the table games shift manager. CLC reviewed working with the , supporting breast, protecting her nipples with an optimal deep latch, good positioning, and good hand washing. Encouraged understanding the benefits of skin to skin, responding to feeding cues, frequencies of feeding 8-12 times in 24 hours (approximately 2-3 hours), duration of feedings, milk production, intake/output feeding sheet and signs of adequate intake encouraging swallowing at the breast. Reviewed positioning and alignment, supporting breast, off-centered (asymmetrical latch) and leading with the chin with big, open, wide gape. latched to the [left] breast in [football] position with the nipple shield and we needed to stimulate baby to suck. Education given to the mother of how to visualize the suckling (with good rocking jaw motion) swallows (dropping of the lower jaw) and how to listen for drinking at the breast (the ka sound). The was [able] to maintain latch without discomfort to mother but still unable to suck effectively at the breast with the nipple shield. Nipple care reviewed with optimal latch, good positioning and using clean hands when touching her breast. CLC discussed with parents the 15-15-15 feeding plan and they were in agreement. After the feeding mother used her breast pump and then baby took 25 mls of Similac with a bottle. Reminded mother that she needs to pump with every feeding to protect her milk supply, also discussed resources used to facilitate learning were used from the [visual handouts/ tool/mom and baby guide]. Mother voiced understanding of the education shared, to call for assistance if the infant does not latch or if there is discomfort with . Reported to the Primary RN.
[2025-02-16] MEDS: POLYSACCHARIDE IRON COMPLEX 150 MG CAPSULE PO ×2 (11:04→16:08)
[2025-02-16] MEDS: DOCUSATE SODIUM 100 MG CAPSULE PO ×2 (11:04→16:09)
[2025-02-16] MEDS: MULTIVIT/MIN/PREN/FOL AC/IRON TABLET 1 TAB PO (11:04)
[2025-02-16] MEDS: SIMETHICONE 80 MG TAB.CHEW PO ×2 (11:04→16:09)
[2025-02-16] MEDS: ESCITALOPRAM OXALATE 5 MG TABLET PO (11:04)
[2025-02-16] MEDS: IBUPROFEN 600 MG TABLET PO ×3 (12:04→23:30)
--- NOTE | 2025-02-16 16:12 | PC.NURSE ---
1500. CLC called to patients room to assist with latching infant. Observed mother latching to the [right] breast in [football] position. Infant [was not] able to maintain an appropriate latch for prolonged period of time, infant kept pushing off the breast and attempting to relatch, would rhythmically suck for a few seconds and then pop off the breast. Mother [declines] nipple pain/discomfort [throughout feeding]. As of this morning the mom has been encouraged to start the 15-15-15 feeding plan. Encouraged mother to keep infant awake and nursing at the breast for 15 minutes/attempt for 15 min then move on to supplementing with formula or expressed breast milk (at least 15 ml). Reviewed that mom is to pump for 15 minutes after feeding infant as well. Both patents verbalize understanding of the plan to continue with the 15-15-15 until infant is feeding better at the breast for long enough to sustain infant. Mother taught to listen for infant swallowing during feedings. Reviewed using the blue feeding sheet to record time and duration of feeding. Mother voiced understanding of the education shared, to call for assistance if the does not latch or if there is discomfort with . name/number on communication board. Reported to the Primary RN.?
[2025-02-17 04:00] VITALS: BP 119/87; PULSE 88
[2025-02-17 04:31] LABS: Basophils Absolute Auto 0.1 K/mm3 (0.0-0.1); Basophils Percent Auto 0.3 % (0.2-1.2); Eosinophils Absolute Auto 0.3 K/mm3 (0-0.3); Eosinophils Percent Auto 1.4 % (0-4.4); Hematocrit 28.4 % (37.0-47.0); Hemoglobin 9.3 g/dL (12.0-15.0); Immature Granulocyte Absolute 0.36 K/mm3 (0.00-0.031); Immature Granulocyte Percent A 1.8 % (0-0.5); Lymphocytes Absolute Auto 2.72 K/mm3 (0.9-3.2); Lymphocytes Percent Auto 13.7 % (18.3-44.2); Mean Corpuscular HGB Conc 32.7 g/dl (32-36); Mean Corpuscular Hemoglobin 29.3 pg (26-34); Mean Corpuscular Volume 89.6 fl (80-100); Mean Platelet Volume 10.7 fl (7.4-10.4); Monocytes Percent Auto 5.2 % (2.6-8.5); Neutrophils Absolute Auto 15.4 K/mm3 (1.3-6.7); Neutrophils Percent Auto 77.6 % (45.5-73.1); Platelet Count Result 247 k/mm3 (150-375); Red Blood Count 3.17 M/mm3 (4.2-5.4); Red Cell Distribution Width 14.6 % (11.5-14.5); White Blood Count 19.9 K/mm3 (4.5-10.0)
[2025-02-17] MEDS: ACETAMINOPHEN 325 MG TABLET 650 MG PO ×2 (05:44→12:07)
[2025-02-17] MEDS: IBUPROFEN 600 MG TABLET PO ×2 (05:44→12:07)
[2025-02-17] MEDS: LEVOTHYROXINE SODIUM 75 MCG TABLET PO (07:34)
--- NOTE | 2025-02-17 07:35 | P.PNOB_ITS ---
OB - PN: Subj Subjective Date/time seen: 02/17/25 07:35 Narrative: POD#1 Argelia reports doing well today. 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 Her pain is controlled. She is tolerating regular diet, voiding, passing gas, and ambulating without issues. She denies any issues with her incision. She is breast feeding and supplementing. She would like her son circumcised. She would like to go home today. OB - PN: Obj Data Labs 02/17/25 03:51 02/16/25 04:29 Labs: Laboratory Results - last 24 hr 02/16/25 02/17/25 09:18 03:51 WBC 23.1 H 19.9 H RBC 3.42 L 3.17 L Hgb 10.0 L D 9.3 L Hct 30.7 L 28.4 L MCV 89.8 89.6 MCH 29.2 29.3 MCHC 32.6 32.7 RDW 14.5 14.6 H Plt Count 210 247 MPV 10.7 H 10.7 H Immature Gran % (Auto) 1.8 H Neut % (Auto) 77.6 H Lymph % (Auto) 13.7 L [place] % (Auto) 5.2 Eos % (Auto) 1.4 Baso % (Auto) 0.3 Lymph # (Auto) 2.72 [place] # (Auto) 1.0 H Eos # (Auto) 0.3 Baso # (Auto) 0.1 Abs Immat Gran (auto) 0.36 H Absolute Neuts (auto) 15.4 H Absolute Nucleated RBC 0.000 Nucleated RBC % 0.0 OB - PN A/P Assessment and Plan (1) S/P section: Code(s): Z98.891 - History of uterine scar from previous surgery Status: Acute (2) Pre-eclampsia: Qualifiers: Trimester: third trimester Qualified Code(s): O14.93 - Unspecified pre- eclampsia, third trimester Code(s): O14.90 - Unspecified pre-eclampsia, unspecified trimester Status: Acute (3) Chorioamnionitis: Code(s): O41.1290 - Chorioamnionitis, unspecified trimester, not applicable or unspecified Status: Acute (4) Anemia: Code(s): D64.9 - Anemia, unspecified Status: Acute Plan day: 2 Plan: routine care and discharge home Comments: - PO pain meds - Regular diet - Ambulation and hydration encouraged - Continue putting baby to breast q2-3hr - H/H stable; s/p venofer, asymptomatic, vitals stable - Afebrile, s/p antibiotics, WBC downtrending Time Spent With Patient Time: Total time spent is greater than 50% in coordination of care (as documented) at patient's floor/unit and/or counseling patient: Review of Systems 2 Constitutional: Constitutional: Denies chills, Denies fever(s) and Denies headache(s) Eyes: Eyes: Denies change in vision ENT: Denies dizziness and Denies headache(s) Cardiovascular: Cardiovascular: Denies chest pain, Denies palpitations and Denies dyspnea Respiratory: Respiratory: Denies cough and Denies dyspnea Gastrointestinal: Gastrointestinal: Denies nausea and Denies vomiting Genitourinary: Comments: normal bleeding Neurologic: Denies dizziness and Denies headache(s) Endocrine: Endocrine: Denies palpitations Exam 2 Const: General: cooperative, comfortable and no acute distress O rientation/consciousness: patient oriented x3 Resp: Effort & Inspection: normal respiratory effort Auscultation: clear to auscultation bilaterally Cardio: Rate: regular rate GI: Inspection: non-distended and incision (covered with clean dressing) GI Palp: Yes abdominal tenderness (appropriate) and Yes Soft to palpation A uscultation: normal bowel sounds : Other: fundus firm Skin: General skin exam: normal color Neuro: General: patient oriented x3 Extrem: General: normal to inspection Psych: Appearance: grossly normal Affect: normal affect Attitude: c ooperative
[2025-02-17 07:36] VITALS: BP 144/82; PULSE 90; RESP 18; TEMP 36.6; O2SAT 97
--- NOTE | 2025-02-17 08:29 | PM.OBDSVD ---
DS: Admitting Diagnosis Discharge Date 02/17/25 Admitting Diagnosis pre-eclampsia w/o severe features DS: Discharge Diagnosis Discharge Diagnosis (1) Pre-eclampsia: Qualifiers: Trimester: third trimester Qualified Code(s): O14.93 - Unspecified pre-eclampsia, third trimester Code(s): O14.90 - Unspecified pre-eclampsia, unspecified trimester Status: Acute (2) S/P section: Code(s): Z98.891 - History of uterine scar from previous surgery Status: Acute (3) Chorioamnionitis: Code(s): O41.1290 - Chorioamnionitis, unspecified trimester, not applicable or unspecified Status: Acute (4) Anemia: Code(s): D64.9 - Anemia, unspecified Status: Acute (5) Arrest of descent, delivered, current hospitalization: Code(s): O62.1 - Secondary uterine inertia Status: Acute OB - DS: Summary OB Procedures : NST, PIH Mgmt and Ultrasound OB Procedures Intrapartum: low cervical, transverse OB Procedures: : Antibiotics and Other (venofer) Peripartum Data Delivery Method: Section Procedures: Procedures Operation Date: 02/15/25 09:00 Actual Procedure Side Surgeon p Section Not Applicable Jacquelin Juárez MD complications: none 1: Gender: Male Disposition of : home Status at Discharge Functional status at discharge: independent ambulation Overall status at discharge: patient is back to baseline Time Spent with Patient Time attestation: Total time spent providing and/or coordinating discharge services: Exam Const: General: cooperative, comfortable, no acute distress and obese Nutritional Appearance: obese Orientation/consciousness: patient oriented x3 Resp: Effort & Inspection: normal respiratory effort Auscultation: clear to auscultation bilaterally Cardio: Rate: regular rate GI: Inspection: non-distended and incision (covered with clean dressing) GI Palp: No abdominal tenderness and Yes Soft to palpation Auscultation: normal bowel sounds : Other: fundus firm Skin: General skin exam: normal color Neuro: General: patient oriented x3 Extrem: General: normal to inspection Psych: Appearance: grossly normal Affect: normal affect Attitude: cooperative DS: Data Data Completed and Pending Pending studies at discharge: Pending at discharge 02/15/25 09:23 Surgical [PTH] Routine Labs on day of discharge: Labs from last 24 hours 02/17/25 02/16/25 03:51 09:18 WBC 19.9 H 23.1 H RBC 3.17 L 3.42 L Hgb 9.3 L 10.0 L D Hct 28.4 L 30.7 L MCV 89.6 89.8 MCH 29.3 29.2 MCHC 32.7 32.6 RDW 14.6 H 14.5 Plt Count 247 210 MPV 10.7 H 10.7 H Immature Gran % (Auto) 1.8 H Neut % (Auto) 77.6 H Lymph % (Auto) 13.7 L [place] % (Auto) 5.2 Eos % (Auto) 1.4 Baso % (Auto) 0.3 Lymph # (Auto) 2.72 [place] # (Auto) 1.0 H Eos # (Auto) 0.3 Baso # (Auto) 0.1 Abs Immat Gran (auto) 0.36 H Absolute Neuts (auto) 15.4 H Absolute Nucleated RBC 0.000 Nucleated RBC % 0.0 Discharge Plan Discharge Attending physician on discharge: Jacquelin Juárez Discharging Clinician: Jacquelin Juárez Anticipated Discharge Date/Time: 02/17/25 11:00 Patient Disposition: Home Activity: may shower and pelvic rest Diet: regular Discharge Instructions: remove dressing on 02/21/25 Patient Instructions: (DC) Patient Language: [place]ian Stand Alone Forms: General Discharge Information Follow-up/Referrals: Jacquelin Juárez MD [Physician] - 4 Weeks Discharge Medications: New lidocaine [Lidoderm] 5 % Adhesive Patch,Medicated 1 patch transdermal DAILY PRN (Reason: Incision pain) Qty: 15 0RF acetaminophen 325 mg Tablet 650 mg PO Q6H Qty: 60 0RF hydrocodone-acetaminophen 5-325 mg Tablet 1 tablet PO Q3H PRN (Reason: Breakthrough Pain Rated 4-6) Qty: 24 0RF docusate sodium 100 mg Capsule 100 mg PO BID Qty: 90 0RF ibuprofen 600 mg Tablet 600 mg PO Q6H Qty: 40 0RF Continued DHA 200 mg capsule 200 mg PO DAILY escitalopram oxalate 5 mg tablet 5 mg PO DAILY levothyroxine [Synthroid] 75 mcg tablet 75 mcg PO DAILY Discontinued calcium carbonate [Tums] 200 mg calcium (500 mg) tablet,chewable 200 mg PO BID PRN (Reason: heartburn) Unisom (doxylamine) 25 mg tablet 25 mg PO QHS PRN (Reason: sleep) pyridoxine (vitamin B6) 10 mg tablet 10 mg PO Q12H ondansetron 4 mg tablet,disintegrating 4 mg PO Q6H PRN (Reason: nausea and vomiting) Qty: 30 2RF aspirin [Adult Low Dose Aspirin] 81 mg tablet,delayed release (DR/EC) 81 mg PO DAILY Date of admission: 02/13/25 15:55 Primary Care Provider: UNKNOWN,DOCTOR Admitting Provider: Jacquelin Juárez Attending physician on admission: Jacquelin Juárez Condition: Stable
[2025-02-17] MEDS: DOCUSATE SODIUM 100 MG CAPSULE PO (08:47)
[2025-02-17] MEDS: SIMETHICONE 80 MG TAB.CHEW PO (08:47)
[2025-02-17] MEDS: ESCITALOPRAM OXALATE 5 MG TABLET PO (08:48)
[2025-02-17] MEDS: POLYSACCHARIDE IRON COMPLEX 150 MG CAPSULE PO (08:48)
[2025-02-17] MEDS: MULTIVIT/MIN/PREN/FOL AC/IRON TABLET 1 TAB PO (08:48)
--- NOTE | 2025-02-17 09:30 | PC.NURSE ---
Consulted with mother concerning needs and she shared her ability latch without pain. She has a nipple shield that she is using sometimes and has a hospital pump that she has used occasionally. She is pumping and bottle feeding when baby doesn't go to breast. Encouraged her to pump regularly so her body knows to make a good supply even if baby isn't . She has concerns about supply so we discussed that it can be day 4 or 5 before first time moms feel a lot of fullness in their breasts. Mother is feeding appropriately for growth of infant and understands stimulating infant to eat if needed. Infant has had appropriate feedings in the last 24 hours meets the outcomes for weight, output, blood sugar and jaundice at this time. Reinforced understanding of milk production, transition of milk, signs of adequate intake, transition of stool, prevention/relief of engorgement, plugged ducts, mastitis, responsive watching for feeding cues, community resources, and when to call a provider using the resource of the feeding sheet along with the mom and baby guide. She has a breast pump at home. Mother voiced understanding of the information shared, is confident to continue effectively her at home, when to call for assistance, denies any additional assistance or education at this time. Reported to the Primary RN.
[2025-02-18 08:33] VITALS: BP 138/90; PULSE 78; RESP 18; TEMP 37; O2SAT 100
== END 2025-02-17 13:45 | disposition home or self-care (01) | DRG 786 ==
LOC: ANHLDR 15:58 → ANHOB2 02-15 12:57
PROVIDERS: Admitting Provider Obstetrics & Gynecology; Visit Provider Obstetrics & Gynecology
PROC: 10D00Z1 Extraction of Products of Conception, Low, Open Approach (ICD-10-PCS; CPT 59514; principal; 2025-02-15 09:00)
DX: O14.94 Unspecified pre-eclampsia, complicating childbirth (principal); O41.1230 Chorioamnionitis, third trimester, not applicable or unspecified; Z37.0 Single live birth; Z3A.37 37 weeks gestation of pregnancy; O42.02 Full-term premature rupture of membranes, onset of labor within 24 hours of rupture; O69.81X0 Labor and delivery complicated by cord around neck, without compression, not applicable or unspecified; O99.344 Other mental disorders complicating childbirth; F41.9 Anxiety disorder, unspecified; O62.1 Secondary uterine inertia; O99.02 Anemia complicating childbirth; D64.9 Anemia, unspecified
CPT/HCPCS: 36415; 80053; 85025; 85027; 86593; 86703; 86850; 86900; 86901; 88307; A9270; G0432; J1580; J1756; J1885; J2004; J2210; J2274; J2371; J2405; J2590; J2795; J3370; J7050; J7120